=== PATIENT | female | born 2000 | race Caucasian/White ===

== ENCOUNTER → 2020-03-27 09:15 | Outpatient (BNVA) | payer BC, MEDICAID, SELFPAY | PROVIDERS: Visit Provider Nurse Practitioner Women's Health | DX: Z34.01 Encounter for supervision of normal first pregnancy, first trimester (principal) | CPT/HCPCS: 81000 ==

== ENCOUNTER → 2020-04-09 10:27 | Outpatient (BNVA) | payer BC, MEDICAID, SELFPAY | PROVIDERS: Visit Provider Obstetrics & Gynecology | DX: Z34.01 Encounter for supervision of normal first pregnancy, first trimester (principal) | CPT/HCPCS: 80307; 81000; 85027; 86592; 86762; 86803; 86850; 86900; 87086; 87340 ==

== ENCOUNTER → 2020-04-23 09:52 | Outpatient (BNVA) | payer BC, MEDICAID, SELFPAY | PROVIDERS: Visit Provider Obstetrics & Gynecology | DX: Z34.01 Encounter for supervision of normal first pregnancy, first trimester (principal) | CPT/HCPCS: 81000 ==

== ENCOUNTER → 2020-05-18 14:08 | Outpatient (BNVA) | payer BC, MEDICAID, SELFPAY | PROVIDERS: Visit Provider Obstetrics & Gynecology | DX: Z34.01 Encounter for supervision of normal first pregnancy, first trimester (principal) | CPT/HCPCS: 81000; 87491; 87591 ==

== ENCOUNTER → 2020-06-20 08:09 | Outpatient (BNVA) | payer BC, MEDICAID, SELFPAY | PROVIDERS: Visit Provider Obstetrics & Gynecology | DX: Z34.01 Encounter for supervision of normal first pregnancy, first trimester (principal) | CPT/HCPCS: 81000 ==

== ENCOUNTER → 2020-07-18 11:30 | Outpatient (BNVA) | payer BC, MEDICAID, SELFPAY | PROVIDERS: Visit Provider Nurse Practitioner Women's Health | DX: Z34.02 Encounter for supervision of normal first pregnancy, second trimester (principal) | CPT/HCPCS: 81000 ==

== ENCOUNTER 2020-08-11 00:18 | Outpatient (CLI) | payer BC, MEDICAID, SELFPAY ==
[2020-08-11 00:32] VITALS: BP 137/86; PULSE 96
[2020-08-11 01:35] LABS: Add Urine Microscopic? NO; Charge for UA Resulting for Rev
[2020-08-11 01:38] LABS: Bilirubin Urine Neg (Negative); Blood Urine Neg (Negative); Glucose Urine UA Norm (Normal); Ketones Urine Negative (Negative); Leukocyte Esterase Urine Negative (Negative); Nitrate Urine Negative (Negative); Protein Urine Neg (Negative); Specific Gravity, Urine 1.025 (1.005-1.030); Urine Appearance Clear (CLEAR); Urine Color Yellow (Yellow); Urobilinogen Urine Norm (Negative); pH Urine 5 (5-7)
[2020-08-11] MEDS: lactated ringers 1,000 ML 999 ML IV ×2 (01:41→02:46)
[2020-08-11] MEDS: hyDROXYzine 25 mg Capsule 50 MG PO (03:39)
[2020-08-11 03:57] VITALS: BP 127/70; PULSE 82
== END 2020-08-11 04:00 | disposition home or self-care (01) ==
LOC: OPOB 00:19 → OBGYN 00:20
PROVIDERS: Visit Provider Obstetrics & Gynecology
DX: O26.899 Other specified pregnancy related conditions, unspecified trimester (principal); Z3A.00 Weeks of gestation of pregnancy not specified; R10.9 Unspecified abdominal pain
CPT/HCPCS: 81003; 96360; 96361; 99211

== ENCOUNTER → 2020-08-17 07:49 | Outpatient (BNVA) | payer BC, MEDICAID, SELFPAY | PROVIDERS: Visit Provider Obstetrics & Gynecology | DX: Z34.02 Encounter for supervision of normal first pregnancy, second trimester (principal) | CPT/HCPCS: 81000; 82950; 85025 ==

== ENCOUNTER → 2020-08-27 08:34 | Outpatient (BNVA) | payer BC, MEDICAID, SELFPAY | PROVIDERS: Visit Provider Obstetrics & Gynecology | DX: Z34.02 Encounter for supervision of normal first pregnancy, second trimester (principal) | CPT/HCPCS: 81000 ==

== ENCOUNTER 2020-09-13 09:45 | Outpatient (CLI) | payer BC, MEDICAID, SELFPAY ==
[2020-09-13 10:00] VITALS: BMI 34.0
[2020-09-13 10:09] VITALS: BP 130/71; PULSE 103; RESP 17; TEMP 36.7
[2020-09-13 10:29] VITALS: BP 122/81; PULSE 102
[2020-09-13 10:35] LABS: Add Urine Microscopic? NO; Charge for UA Resulting for Rev
[2020-09-13 10:41] LABS: Basophils % 0.2 %; Eosinophils # 0.2 10^3/uL (0.0-0.8); Eosinophils % 1.5 %; Lymphocytes # 2.2 10^3/uL (1.5-6.5); Lymphocytes % 18.5 %; Mean Corpuscular HGB Conc 33.3 g/dL (30.0-36.0); Mean Corpuscular Hemoglobin 30.6 pg (28.0-34.0); Mean Corpuscular Volume 91.9 fL (81-99); Mean Platelet Volume 9.5 fL (7.4-10.4); Monocytes # 0.8 10^3/uL (0.2-0.9); Monocytes % 6.6 %; Neutrophils # 8.61 10^3/uL (1.8-8.0); Neutrophils % 72.5 %; Nucleated Red Blood Cells % 0 %; Platelet Count 248 10^3/cmm (130-400); Red Blood Count 3.59 10^6/uL (4.1-5.3); Red Cell Distribution Width 12.2 % (12.1-15.1); White Blood Count 11.9 10^3/uL (4.5-13.0)
[2020-09-13 10:49] VITALS: BP 123/78; PULSE 99
[2020-09-13 10:50] LABS: Bilirubin Urine Neg (Negative); Blood Urine Neg (Negative); Glucose Urine UA Norm (Normal); Ketones Urine Negative (Negative); Leukocyte Esterase Urine Negative (Negative); Nitrate Urine Negative (Negative); Protein Urine Neg (Negative); Specific Gravity, Urine 1.015 (1.005-1.030); Urine Appearance Clear (CLEAR); Urine Color Yellow (Yellow); Urobilinogen Urine Norm (Negative); pH Urine 6 (5-7)
[2020-09-13 11:01] LABS: Alanine Aminotransferase 6 U/L (0-33); Albumin Level 3.5 g/dL (3.5-5.2); Alkaline Phosphatase 96 IU/L (35-105); Anion Gap 14.9 (5-19); Aspartate Amino Transferase 9 U/L (0-32); Blood Urea Nitrogen 6 mg/dL (6-20); Calcium 8.6 mg/dL (8.5-10.5); Carbon Dioxide 22 mmol/L (22-29); Chloride 103 mmol/L (98-107); Globulin 2.9 g/dL (1.3-4.6); Glomerular Filtration Rate 203.5 mL/min (90-130); Glucose 89 mg/dL (65-115); Osmolality Calculated 279 mOsm/kg (285-295); Potassium 3.9 mmol/L (3.5-5.1); Sodium 136 mmol/L (136-145); Total Bilirubin 0.6 mg/dL (0.15-1.2); Total Protein 6.4 g/dL (6.6-8.7); Uric Acid 3.8 mg/dL (2.4-5.7)
[2020-09-13 11:09] VITALS: BP 125/68; PULSE 90
[2020-09-13 11:19] LABS: Urine Creatinine 172 mg/dL (28-217); Urine Protein Random 17 mg/dL
[2020-09-13 11:29] VITALS: BP 116/69; PULSE 90
== END 2020-09-13 11:50 | disposition home or self-care (01) ==
LOC: OPOB 09:53 → OBGYN 09:54
PROVIDERS: Obstetrics & Gynecology; Visit Provider Obstetrics & Gynecology
DX: O16.9 Unspecified maternal hypertension, unspecified trimester (principal); Z3A.00 Weeks of gestation of pregnancy not specified
CPT/HCPCS: 36415; 59025; 80053; 81000; 81003; 82570; 84156; 84550; 85025; 99211

== ENCOUNTER → 2020-09-25 10:00 | Outpatient (BNVA) | payer BC, MEDICAID, SELFPAY | PROVIDERS: Visit Provider Nurse Practitioner Women's Health | DX: Z34.80 Encounter for supervision of other normal pregnancy, unspecified trimester (principal) | CPT/HCPCS: 81000 ==

== ENCOUNTER 2020-10-05 14:18 | Outpatient (CLI) | payer BC, MEDICAID, SELFPAY ==
[2020-10-05] VITALS (34 sets, daily range): BP systolic 112–138; BP diastolic 63–79; PULSE 93–120; RESP 18; O2SAT 96–99; BMI 34.7
[2020-10-05] MEDS: HYDROcodone-acetaminophen 5-325 mg Tablet 1 TAB PO (15:32)
[2020-10-05] MEDS: lactated ringers 500 ML 999 ML IV (15:50)
--- NOTE | 2020-10-05 16:05 | PM.ACPR ---
Procedure/Consent Procedure Narrative: NONSTRESS TEST: Place of test: [facility] [place] Indication: 19-year-old 1 para 0 with swelling headache and contractions at 35 weeks and 6 days Date and time of test: 10/05/2020, 3:30 PM Baseline: 155 Variability: Moderate variability Accelerations: Accelerations present Decelerations: No decelerations Tocometry: Contractions every 2 to 4 minutes INTERPRETATION: NST reactive-continuous monitoring given contractions, continue kick counts
[2020-10-05 16:16] LABS: Urine Creatinine 68 mg/dL (28-217); Urine Protein Random 7 mg/dL
== END 2020-10-05 17:30 | disposition home or self-care (01) ==
LOC: OPOB 14:25 → OBGYN 14:27
PROVIDERS: Visit Provider Obstetrics & Gynecology
DX: O26.893 Other specified pregnancy related conditions, third trimester (principal); Z3A.35 35 weeks gestation of pregnancy; R42 Dizziness and giddiness; R20.0 Anesthesia of skin
CPT/HCPCS: 36415; 59025; 82570; 84156; 96360; 99211

== ENCOUNTER 2020-10-05 17:31 | Emergency (ER) | payer BC, MEDICAID, SELFPAY ==
[2020-10-05 17:41] VITALS: BP 129/85; PULSE 101; RESP 17; TEMP 36.7; O2SAT 97
[2020-10-05 18:21] LABS: Basophils % 0.2 %; Eosinophils # 0.2 10^3/uL (0.0-0.8); Eosinophils % 1.8 %; Hematocrit 33.3 % (37.0-47.0); Hemoglobin 10.9 g/dL (11.5-15.3); Lymphocytes # 2.3 10^3/uL (1.5-6.5); Mean Corpuscular HGB Conc 32.7 g/dL (30.0-36.0); Mean Corpuscular Hemoglobin 29.9 pg (28.0-34.0); Mean Corpuscular Volume 91.2 fl (81-99); Monocytes % 8.4 %; Neutrophils # 8.61 10^3/uL (1.8-8.0); Nucleated Red Blood Cells % 0 %; Platelet Count 245 10^3/cmm (130-400); Red Blood Count 3.65 10^6/uL (4.1-5.3); Red Cell Distribution Width 12.6 % (12.1-15.1); White Blood Count 12.3 10^3/uL (4.5-13.0)
[2020-10-05 18:37] LABS: Alanine Aminotransferase 6 U/L (0-33); Albumin Level 3.4 g/dL (3.5-5.2); Alkaline Phosphatase 108 IU/L (35-105); Anion Gap 13.8 (5-19); Aspartate Amino Transferase 10 U/L (0-32); Blood Urea Nitrogen 6 mg/dL (6-20); Calcium 8.6 mg/dL (8.5-10.5); Carbon Dioxide 22 mmol/L (22-29); Chloride 103 mmol/L (98-107); Globulin 2.7 g/dL (1.3-4.6); Glomerular Filtration Rate 283.6 mL/min (90-130); Glucose 74 mg/dL (65-115); Osmolality Calculated 276 mOsm/kg (285-295); Potassium 3.8 mmol/L (3.5-5.1); Sodium 135 mmol/L (136-145); Total Bilirubin 0.6 mg/dL (0.15-1.2); Total Protein 6.1 g/dL (6.6-8.7)
[2020-10-05 19:20] LABS: Add Urine Microscopic? NO; Bilirubin Urine Neg (Negative); Blood Urine Neg (Negative); Charge for UA Resulting for Rev; Glucose Urine UA Norm (Normal); Ketones Urine Negative (Negative); Leukocyte Esterase Urine Negative (Negative); Nitrate Urine Negative (Negative); Protein Urine Neg (Negative); Urine Appearance Clear (CLEAR); Urine Color Straw (Yellow); Urobilinogen Urine Norm (Negative); pH Urine 5 (5-7)
[2020-10-05] MEDS: acetaminophen 325 mg Tablet 650 MG PO (19:26)
[2020-10-05] MEDS: dexamethasone 10 mg/mL INJ IM (19:27)
[2020-10-05 19:48] VITALS: BP 128/85; PULSE 92; RESP 18; O2SAT 97
--- NOTE | 2020-10-05 19:50 | ED_ITS ---
HPI - Headache General: Chief Complaint: Headache Stated Complaint: Severe Headache/36 wks preg. Sent from OB Time Seen by Provider: 10/05/20 18:44 History of Present Illness: HPI Narrative: Patient is a 19-year-old female G1, P0 at 36 weeks. No complications with this and follows with a local media relations director. She is here with complaints of headache. She was first seen in the OB department where she had a monitoring that showed some mild con tractions but no active labor. She had basic labs drawn and was brought down here for further evaluation [place] of her headache. At the time she was given hydrocodone which helped her headache. However it returned and she was sent back down here. She has been normotensive. Denies any visual changes right upper quadrant pain shortness of breath or chest pain. No altered mental status. No increase in lower leg edema. Denies fevers chills chest pain nausea vomiting diarrhea altered mental status or syncope Pain she states is bilateral behind her eyes and in frontalis muscle. Was not sudden onset or is not the worst headache of her life. She does not have any numbness or tingling in her face hands or feet Review of Systems General: Reports: 10 or more systems reviewed and unremarkable except in HPI and below PFSH ED PFSH: Medical History No pertinent past medical history neghx: htn,dm,thyroid,dvt/pe,herpes ---denies partner with herpes PCP: None Surgical History History of tonsillectomy and adenoidectomy (~2007) Family History Grandmother Diabetes Maternal Denies family history of Colon cancer Ovarian cancer Heart disease Hypercholesteremia Breast cancer Hypertension Uterine cancer Thyroid disease Stroke Physical Exam Const: COMMON NORMALS: no acute distress, average body habitus, patient oriented x3, no limitations and alert EXAM LIMITATIONS: no altered mental status, no behavioral limitations and no physical limitations GENERAL APPEARA NCE: cooperative, comfortable, well kempt and well developed ORIENTATION/CONSCIOUSNESS: Yes oriented to person, Yes oriented to place and Yes oriented to time HENMT: COMMON NORMALS: normocephalic and atraumatic HEAD & SCALP: normocephalic and atraumatic OTHER: Mild tenderness to palpation over her frontal sinuses bilaterally Eye: COMMON NORMALS: Equal, round and reactive pupils present, EOMs intact bilaterally, conjunctivae normal and no scleral icterus CONJUNCTIVA: Yes conjunctivae normal PUPIL: Yes Equal, round and reactive pupils present Neck/C-Spine: COMMON NORMALS: full ROM and no meningeal signs Resp: COMMON NORMALS: normal respiratory effort and No retractions Cardio: COMMON NORMALS: regular rate, regular rhythm and No murmurs present (Cardio) RATE: regular rate RHYTHM: regular rhythm GI: COMMON NORMALS: Normal to inspection, nondistended, normoactive bowel sounds present INSPECTION: Yes normal to inspection and Yes gravid abdomen Extremity: COMMON NORMALS: normal to inspection and full ROM Neuro: COMMON NORMALS: patient oriented x3, CN's II-XII intact bilaterally, moves all extremities, no focal motor deficits and no sensory deficits noted SENSORIUM/ORIENTATION: Yes alert, Yes oriented to person, Yes oriented to place and Yes oriented to time MENINGEAL SIGNS: Yes no meningeal signs and Yes nuccal rigidity CRANIAL NERVES: Yes CN normal except as noted Psych: COMMON NORMALS: mental status grossly normal and Normal thought process present APPEARANCE: Yes well kempt THOUGHT PROCESS: Normal thought process present Skin: COMMON NORMALS: no rashes or lesions noted and no wounds GENERAL SKIN EXAM: no rashes or lesions noted Course ED course: Patient got some mild relief from the Tylenol. Hopefully the steroids will help as well. Normal heart tones labs did not show any indication of preeclampsia. Her protein creatinine ratio was 0.1 well below cutoff. We will discharge her and have her follow-up with her primary care provider Vital Signs: Vital signs: Vital Signs Temperature 98.1 F 10/05/20 17:41 Pulse Rate 92 10/05/20 19:48 Respiratory Rate 18 10/05/20 19:48 Blood Pressure 128/85 10/05/20 19:48 Pulse Oximetry 97 10/05/20 19:48 MDM - Headache Lab Data: Labs: Lab Results 10/05/20 10/05/20 10/05/20 Range/Units 15:40 15:40 18:51 WBC 12.3 (4.5-13.0) 10^3/ uL RBC 3.65 L (4.1-5.3) 10^6/u L Hgb 10.9 L (11.5-15.3) g/dL Hct 33.3 L (37.0-47.0) % MCV 91.2 (81-99) fl MCH 29.9 (28.0-34.0) pg MCHC 32.7 (30.0-36.0) g/dL RDW 12.6 (12.1-15.1) % Plt Count 245 (130-400) 10^3/c mm MPV 10.0 (7.4-10.4) fL Neut % (Auto) 70.0 % Lymph % (Auto) 19.0 % [place] % (Auto) 8.4 % Eos % (Auto) 1.8 % Baso % (Auto) 0.2 % Neut # (Auto) 8.61 H (1.8-8.0) 10^3/u L Lymph # (Auto) 2.3 (1.5-6.5) 10^3/u L [place] # (Auto) 1.0 H (0.2-0.9) 10^3/u L Eos # (Auto) 0.2 (0.0-0.8) 10^3/u L Baso # (Auto) 0.0 (0.0-0.1) 10^3/u L Nucleated RBC % (a uto) 0 % Nucleated RBCs # 0.0 /100WBC Sodium 135 L (136-145) mmol/L Potassium 3.8 (3.5-5.1) mmol/L Chloride 103 (98-107) mmol/L Carbon Dioxide 22 (22-29) mmol/L Anion Gap 13.8 (5-19) BUN 6 (6-20) mg/dL Creatinine 0.3 L (0.5-0.9) mg/dL GFR Calculation 283.6 H (90-130) mL/min Glucose 74 (65-115) mg/dL Calculated Osmolal ity 276 L (285-295) mOsm/k g Uric Acid (2.4-5.7) mg/dL Calcium 8.6 (8.5-10.5) mg/dL Total Bilirubin 0.6 (0.15-1.2) mg/dL AST 10 (0-32) U/L ALT 6 (0-33) U/L Alkaline Phosphata se 108 H (35-105) IU/L Total Protein 6.1 L (6.6-8.7) g/dL Albumin 3.4 L (3.5-5.2) g/dL Globulin 2.7 (1.3-4.6) g/dL Urine Color Straw (Yellow) Urine Appearance Clear (CLEAR) Urine pH 5 (5-7) Ur Specific Gravit y 1.010 (1.005-1.030) Urine Protein Neg (Negative) Urine Glucose (UA) Norm (Normal) Urine Ketones Negative (Negative) Urine Blood Neg (Negative) Urine Nitrate Negative (Negative) Urine Bilirubin Neg (Negative) Urine Urobilinogen Norm (Negative) mg/dL Ur Leukocyte Yari ase Negative (Negative) 10/05/20 Range/Units 19:30 WBC (4.5-13.0) 10^3/ uL RBC (4.1-5.3) 10^6/u L Hgb (11.5-15.3) g/dL Hct (37.0-47.0) % MCV (81-99) fl MCH (28.0-34.0) pg MCHC (30.0-36.0) g/dL RDW (12.1-15.1) % Plt Count (130-400) 10^3/c mm MPV (7.4-10.4) fL Neut % (Auto) % Lymph % (Auto) % [place] % (Auto) % Eos % (Auto) % Baso % (Auto) % Neut # (Auto) (1.8-8.0) 10^3/u L Lymph # (Auto) (1.5-6.5) 10^3/u L [place] # (Auto) (0.2-0.9) 10^3/u L Eos # (Auto) (0.0-0.8) 10^3/u L Baso # (Auto) (0.0-0.1) 10^3/u L Nucleated RBC % (a uto) % Nucleated RBCs # /100WBC Sodium (136-145) mmol/L Potassium (3.5-5.1) mmol/L Chloride (98-107) mmol/L Carbon Dioxide (22-29) mmol/L Anion Gap (5-19) BUN (6-20) mg/dL Creatinine (0.5-0.9) mg/dL GFR Calculation (90-130) mL/min Glucose (65-115) mg/dL Calculated Osmolal ity (285-295) mOsm/k g Uric Acid 3.3 (2.4-5.7) mg/dL Calcium (8.5-10.5) mg/dL Total Bilirubin (0.15-1.2) mg/dL AST (0-32) U/L ALT (0-33) U/L Alkaline Phosphata se (35-105) IU/L Total Protein (6.6-8.7) g/dL Albumin (3.5-5.2) g/dL Globulin (1.3-4.6) g/dL Urine Color (Yellow) Urine Appearance (CLEAR) Urine pH (5-7) Ur Specific Gravit y (1.005-1.030) Urine Protein (Negative) Urine Glucose (UA) (Normal) Urine Ketones (Negative) Urine Blood (Negative) Urine Nitrate (Negative) Urine Bilirubin (Negative) Urine Urobilinogen (Negative) mg/dL Ur Leukocyte Yari ase (Negative) Discharge Plan Discharge Patient Disposition: Home Clinical Impression: Headache Qualifiers: Headache type: tension-type Headache chronicity pattern: acute headache Intractability: not intractable Qualified Code(s): G44.209 - Tension-type headache, unspecified, not intractable Condition: Stable Prescriptions: No Action prenat.vits,tavo,vyx-emem-cpdje Tablet 1 tab PO DAILY RF: 0 polyethylene glycol 3350 [Miralax] 17 gram/dose powder 17 g PO BID RF: 0 ferrous sulfate 325 mg (65 mg iron) tablet,delayed release (DR/EC) 325 mg PO BID RF: 0 Discharge Orders: Discharge ED (Routine); Ordered 10/05/20 Ordered By: Alex Nichole Referrals: Sneha Guzman MD [Primary Care Provider] - Discharge Activity: Resume usual activity Patient Instructions: Acute Headache (ED) Activity Restrictions/Additional Instructions: You can take Tylenol 650 mg 4 times a day. You should have less you need for that over the next day as the steroids kick in. He can also use a heating pad alternating with a cool washcloth over the bridge of her nose and forehead. Follow-up with your media relations director at your next scheduled appointment. Return with any worsening symptoms severe pain in the right upper quadrant visual changes chest pain lack of movement bleeding contractions or any other new or worsening symptoms. Coding Level of Care Code ED Accounts Manager for Chg Fwd Exam Comprehensive
[2020-10-05 20:04] LABS: Uric Acid 3.3 mg/dL (2.4-5.7)
[2020-10-05 20:10] LABS: Urine Creatinine 57 mg/dL (28-217); Urine Protein Random 6 mg/dL
[2020-10-05 20:11] LABS: UPRO/UCREAT Ratio 0.11 mg/mg CR
[2020-10-05 20:15] LABS: Lactate Dehydrogenase 808 U/L (135-214)
[2020-10-05 20:17] VITALS: BP 119/76; PULSE 93; PULSE 99; RESP 18; O2SAT 90; O2SAT 98
== END 2020-10-05 20:20 | disposition home or self-care (01) ==
PROVIDERS: Emergency Medicine; Emergency Provider Family Medicine; PCP Obstetrics & Gynecology
DX: O26.893 Other specified pregnancy related conditions, third trimester (principal); G44.209 Tension-type headache, unspecified, not intractable; Z3A.36 36 weeks gestation of pregnancy
CPT/HCPCS: 80053; 81003; 82570; 83615; 84156; 84550; 85025; 96372; 99283; J1100

== ENCOUNTER → 2020-10-08 10:02 | Outpatient (BNVA) | payer BC, MEDICAID, SELFPAY | PROVIDERS: PCP Obstetrics & Gynecology; Visit Provider Obstetrics & Gynecology | DX: Z34.02 Encounter for supervision of normal first pregnancy, second trimester (principal) | CPT/HCPCS: 81000; 87081 ==

== ENCOUNTER 2020-10-14 15:30 | Outpatient (CLI) | payer BC, MEDICAID, SELFPAY ==
[2020-10-14] VITALS (33 sets, daily range): BP systolic 119–142; BP diastolic 67–93; PULSE 85–111; RESP 17–18; TEMP 36.5; O2SAT 96–99; BMI 33.5
[2020-10-14 16:43] LABS: Add Urine Microscopic? NO; Charge for UA Resulting for Rev
[2020-10-14 16:46] LABS: Basophils % 0.3 %; Eosinophils # 0.3 10^3/uL (0.0-0.8); Eosinophils % 2.6 %; Hematocrit 33.4 % (37.0-47.0); Lymphocytes # 2.6 10^3/uL (1.5-6.5); Mean Corpuscular HGB Conc 32.9 g/dL (30.0-36.0); Mean Corpuscular Hemoglobin 30.1 pg (28.0-34.0); Mean Corpuscular Volume 91.5 fl (81-99); Mean Platelet Volume 9.9 fL (7.4-10.4); Monocytes # 0.9 10^3/uL (0.2-0.9); Monocytes % 7.3 %; Neutrophils # 7.87 10^3/uL (1.8-8.0); Neutrophils % 66.9 %; Nucleated Red Blood Cells % 0 %; Platelet Count 252 10^3/cmm (130-400); Red Blood Count 3.65 10^6/uL (4.1-5.3); White Blood Count 11.8 10^3/uL (4.5-13.0)
[2020-10-14 16:57] LABS: Bilirubin Urine Neg (Negative); Blood Urine Neg (Negative); Glucose Urine UA Norm (Normal); Ketones Urine Negative (Negative); Leukocyte Esterase Urine Negative (Negative); Nitrate Urine Negative (Negative); Protein Urine Neg (Negative); Specific Gravity, Urine 1.015 (1.005-1.030); Urine Appearance Clear (CLEAR); Urine Color Straw (Yellow); Urobilinogen Urine Norm (Negative); pH Urine 6 (5-7)
[2020-10-14] MEDS: hyDROXYzine 25 mg Capsule 50 MG PO (17:12)
[2020-10-14 17:14] LABS: Urine Creatinine 55 mg/dL (28-217); Urine Protein Random 6 mg/dL
[2020-10-14 17:15] LABS: Alanine Aminotransferase 8 U/L (0-33); Albumin Level 3.5 g/dL (3.5-5.2); Alkaline Phosphatase 118 IU/L (35-105); Anion Gap 13.1 (5-19); Aspartate Amino Transferase 12 U/L (0-32); Blood Urea Nitrogen 8 mg/dL (6-20); Carbon Dioxide 22 mmol/L (22-29); Chloride 104 mmol/L (98-107); Globulin 2.9 g/dL (1.3-4.6); Glomerular Filtration Rate 203.5 mL/min (90-130); Glucose 77 mg/dL (65-115); Osmolality Calculated 277 mOsm/kg (285-295); Potassium 4.1 mmol/L (3.5-5.1); Sodium 135 mmol/L (136-145); Total Bilirubin 0.5 mg/dL (0.15-1.2); Total Protein 6.4 g/dL (6.6-8.7)
[2020-10-14 17:16] LABS: UPRO/UCREAT Ratio 0.11 mg/mg CR; Uric Acid 3.7 mg/dL (2.4-5.7)
[2020-10-14] MEDS: cyclobenzaprine 10 mg Tablet PO (17:33)
== END 2020-10-14 17:49 | disposition home or self-care (01) ==
LOC: OPOB 15:33 → OBGYN 15:34
PROVIDERS: PCP Obstetrics & Gynecology; Visit Provider Obstetrics & Gynecology
DX: O26.899 Other specified pregnancy related conditions, unspecified trimester (principal); Z3A.00 Weeks of gestation of pregnancy not specified; R51.9 Headache, unspecified
CPT/HCPCS: 36415; 59025; 80053; 81003; 82570; 84156; 84550; 85025; 99211

== ENCOUNTER → 2020-10-15 09:50 | Outpatient (BNVA) | payer BC, MEDICAID, SELFPAY | PROVIDERS: PCP Obstetrics & Gynecology; Visit Provider Obstetrics & Gynecology | DX: Z34.90 Encounter for supervision of normal pregnancy, unspecified, unspecified trimester (principal) | CPT/HCPCS: 81000 ==

== ENCOUNTER → 2020-10-25 09:41 | Outpatient (BNVA) | payer BC, MEDICAID, SELFPAY | PROVIDERS: PCP Obstetrics & Gynecology; Visit Provider Obstetrics & Gynecology | DX: Z34.02 Encounter for supervision of normal first pregnancy, second trimester (principal) | CPT/HCPCS: 81000; 87635 ==

== ENCOUNTER 2020-10-26 14:30 | Inpatient (IN) | payer BC, MEDICAID, SELFPAY ==
[2020-10-26] VITALS (26 sets, daily range): BP systolic 113–140; BP diastolic 58–85; PULSE 92–108; RESP 17–20; TEMP 36.6; BMI 35.6
--- NOTE | 2020-10-26 15:22 | PM.OPHPUD ---
Labor & Delivery H&P Update Date of Procedure: October 26, 2020 Date H&P Performed: 10/25/20 H&P update information: I have reviewed H&P completed within last 30 days, I have examined patient prior to procedure and No changes to prior documentation Admission Diagnosis: iup at 38 6/7, early labor
[2020-10-26] MEDS: oxytocin 30 UNIT/500 ML BAG IV (16:00)
[2020-10-26] MEDS: dextrose 5%-lactated ringers 1,000 ML 125 ML IV (16:00)
--- NOTE | 2020-10-26 17:00 | PC.NURSE ---
PT C/O PAIN 11/25, BUT DECLINES INTERVENTION
[2020-10-26 18:49] LABS: Basophils % 0.2 %; Eosinophils # 0.1 10^3/uL (0.0-0.8); Eosinophils % 0.5 %; Hematocrit 33.2 % (37.0-47.0); Hemoglobin 10.7 g/dL (11.5-15.3); Lymphocytes # 1.3 10^3/uL (1.5-6.5); Lymphocytes % 10.5 %; Mean Corpuscular HGB Conc 32.2 g/dL (30.0-36.0); Mean Corpuscular Hemoglobin 29.5 pg (28.0-34.0); Mean Corpuscular Volume 91.5 fl (81-99); Mean Platelet Volume 10.2 fL (7.4-10.4); Monocytes # 0.7 10^3/uL (0.2-0.9); Neutrophils # 10.04 10^3/uL (1.8-8.0); Neutrophils % 82.5 %; Nucleated Red Blood Cells % 0 %; Platelet Count 274 10^3/cmm (130-400); Red Blood Count 3.63 10^6/uL (4.1-5.3); Red Cell Distribution Width 12.8 % (12.1-15.1); White Blood Count 12.2 10^3/uL (4.5-13.0)
--- NOTE | 2020-10-26 19:15 | PC.NURSE ---
Nia Cosby RN titrated oxytocin on Centricity strip. Unable to chart past titration on infusion record.
--- NOTE | 2020-10-26 19:40 | PC.NURSE ---
This nurse at bedside at this time. This nurse educated pt on plan of care, stopping oxytocin, starting cytotec, reasoning behind plan of care. Pt and SO verbalized understanding. Questions answered.
[2020-10-26] MEDS: miSOPROStol 100 mcg tablet 25 MCG VAGINAL (22:13)
[2020-10-27] VITALS (165 sets, daily range): BP systolic 103–179; BP diastolic 55–86; PULSE 74–110; RESP 15–20; TEMP 36.4–37.5; O2SAT 96–100
[2020-10-27] MEDS: hyDROXYzine 25 mg Capsule 50 MG PO (01:51)
[2020-10-27] MEDS: miSOPROStol 100 mcg tablet 25 MCG VAGINAL ×2 (02:16→07:19)
[2020-10-27] MEDS: fentaNYL 50 mcg/mL INJ 2mL IVP ×2 (04:09→05:45)
[2020-10-27] MEDS: lactated ringers 1,000 ML 999 ML IV (05:15)
--- NOTE | 2020-10-27 05:50 | ANES.PREANE2 ---
Pre-Anesthetic Assessment Pre-Anesthetic Assessment: Height/Weight: Height 1.57 m Weight 88.451 kg Temp Pulse Resp BP Pulse Ox 99.1 F 105 H 20 H 132/71 97 10/27/20 04:50 10/27/20 06:11 10/27/20 05:45 10/27/20 06:11 10/27/20 06:11 Preop Diagnosis: IUP/ Proposed Procedure: labor epidural Was Beta Peyton taken within 24 hours: N/A Was Clonidine taken within 24 hours: N/A Social: Social History: No alcohol and No tobacco Exam: Pre-Anes Outpt Exam: alert, oriented x 3, clear to auscultation bilaterally and regular rate & rhythm Airway: Submandibular: WNL Cervical ROM: WNL MP: 2 History/ROS: No significant history except as noted Pulmonary: Pulmonary: None reported CV/HEM: CV/HEM: HTN (PID) : : None reported Hepatic: Hepatic: None reported GI: GI: None reported Metabolic: Metabolic: None reported Musc/skel: Musc/skel: None reported Neuropsych: Neuropsych: None reported Anesthetic Plan: ASA status: 2 Anesthesia: Anesthesia Evaluation Risk of > 500 ml blood loss (7ml/kg in children): No Meds/Allergies Current Medications: Current Medications Generic Name Dose Route Start Last Admin Trade Name Freq PRN Reason Stop Dose Admin Fentanyl 25 - 100 mcg 10/26/20 15:27 10/27/20 05:45 Fentanyl 50 Mcg/ Ml Inj 2ml IVP 50 mcg Q1H PRN Administration SEVERE PAIN Hydroxyzine Pamoat e 50 mg 10/26/20 15:27 10/27/20 01:51 Hydroxyzine 25 M g Capsule PO 50 mg QID PRN Administration sleep, agitation or itching Dextrose/Lactated Ringer's 1,000 mls @ 125 m ls/hr 10/26/20 15:30 10/27/20 05:15 Dextrose 5%-Lact ated Ringers IV Infused .Q8H ROBERT Infusion Ropivacaine 200 mg in 100 mls @ 13 mls/hr 10/27/20 05:00 10/27/20 05:58 Naropin Premix EPIDURAL 13 mls/hr .Q7H42M ROBERT Administration Lactated Ringer's 1,000 mls @ 999 m ls/hr 10/27/20 04:46 10/27/20 05:15 Lactated Ringers IV 999 mls/hr .Q1H1M PRN Administration See label comment s PFSH Anesthesia PFSH: Medical History No pertinent past medical history neghx: htn,dm,thyroid,dvt/pe,herpes ---denies partner with herpes PCP: None Surgical History History of tonsillectomy and adenoidectomy (~2007) Family History Grandmother Diabetes Maternal Denies family history of Colon cancer Ovarian cancer Heart disease Hypercholesteremia Breast cancer Hypertension Uterine cancer Thyroid disease Stroke Female Reproductive History: : 1 Data Anesthesia CBC & Chem 7: 10/26/20 15:55 Other Labs: Laboratory Results - last 48 hr 10/26/20 15:55 WBC 12.2 RBC 3.63 L Hgb 10.7 L Hct 33.2 L MCV 91.5 MCH 29.5 MCHC 32.2 RDW 12.8 Plt Count 274 MPV 10.2 Neut % (Auto) 82.5 Lymph % (Auto) 10.5 [place] % (Auto) 6.0 Eos % (Auto) 0.5 Baso % (Auto) 0.2 Neut # (Auto) 10.04 H Lymph # (Auto) 1.3 L [place] # (Auto) 0.7 Eos # (Auto) 0.1 Baso # (Auto) 0.0 Nucleated RBC % (auto) 0 Nucleated RBCs # 0.0 Cardiac Studies: No Data to Display
--- NOTE | 2020-10-27 06:19 | ANES.PROC ---
Anesthesia Procedures Procedure/Date: 10/27/20 Epidural: Time Out Performed: Yes Consents Signed: Procedure Consent Consent: requested by attending/covering physician Lumbar Level: L3-L4 Epidural position: sitting Epidural procedure: sterile prep of area, 1% lidocaine to numb the area, 18 g needle, negative for paresthesia passed, neg for paresthesia, test dose given, 1.5% xylocaine 1:200k epi (5ml), placed PCEA, no systemic response, sterile dressing applied, L.U.D. no apparent complications and 0.2% Ropiavacaine @ mls/hr (13)
--- NOTE | 2020-10-27 06:24 | PM.PN ---
Vitals/I&O/Wt Last Vital Signs Temp 97.5 F L 10/27/20 06:17 Pulse 101 H 10/27/20 06:21 Resp 15 10/27/20 06:22 BP 119/62 10/27/20 06:20 Pulse Ox 99 10/27/20 06:21 10/26/20 10/26/20 10/27/20 14:59 22:59 06:59 Intake Total 477.316 / 011.525 6986.667 / 1818.983 Balance 477.316 / 610.188 3426.667 / 1818.983 Weight last 48 hrs Weight 195 lb Physical Exam Narrative: EXAM NARRATIVE: The patient has received a couple of doses of cytotec. She is presently getting an epidural for pain control. status is very reassuring with a category 1 tracing Const: COMMON NORMALS: no acute distress, average body habitus, patient oriented x3, no limitations, healthy appearing, alert and well nourished GENERAL APPEARANCE: cooperative, comfortable, well kempt and well developed ORIENTATION/CONSCIOUSNESS: Yes awake, Yes oriented to person, Yes oriented to place and Yes oriented to time Resp: COMMON NORMALS: normal respiratory effort EFFORT & INSPECTION: Yes able to speak in complete sentences GI: COMMON NORMALS: Soft to palpation and non-tender PALPATION: Yes Soft to palpation Extremity: COMMON NORMALS: no clubbing, cyanosis or edema and no calf tenderness Neuro: COMMON NORMALS: patient oriented x3 SENSORIUM/ORIENTATION: Yes alert, Yes oriented to person, Yes oriented to place and Yes oriented to time Psych: APPEARANCE: Yes well kempt Urinary Catheter Management^: Carter: Cath Placed During This Visit: yes Reason for Continuing Indwelling Catheter: Other Urinary Catheter Date of Insertion: 10/27/20 Urinary Catheter Time of Insertion: 06:20 Data : 10/26/20 15:55 Attestations Medical Necessity Statement*: The patient will be here for two midnights Coding Level of Care Code Acute Warehouse Distribution Manager for Yajaira Stanley
[2020-10-27] MEDS: dextrose 5%-lactated ringers 1,000 ML 125 ML IV ×2 (07:31→15:47)
[2020-10-27] MEDS: oxytocin 30 UNIT/500 ML BAG IV (13:01)
[2020-10-27] MEDS: ondansetron 2 mg/ML SDV 2 mL 4 MG IVP (16:16)
--- NOTE | 2020-10-27 19:19 | P.PCNOB_ITS ---
Delivery Note: Date of delivery: October 27, 2020 Pre-delivery diagnoses: iup at 39 weeks, labile blood pressures Post-delivery diagnoses: same Procedure: Op report anesthesia: Epidural Delivering Physician: Thomas Estimated blood loss (mL): 75 Findings: term male in the cephalic presentation Pre-Delivery Course: The patient was admitted for induction at term. She had some labile blood pressures on admission. the patient also appears to have undiagnosed anxiety. She had cytotec times three. She received an epidural for pain management. She had SROM and then had complete cervical dilation. Delivery: The patient had complete cervical dilation and began to push. The head delivered in the SHERRELL position over an intact perineum under epidural anesthesia. There was a single nuchal cord which was reduced at the perineum. The nose and mouth were bulb suctioned. The shoulders and body delivered atraumatically. The baby was placed onto the mother's abdomen. The cord was clamped and cut. The placenta delivered spontaneously. It was inspected and found to be intact. Inspection of the perineum revealed no repair was required. Estimated blood loss 75 mL. Apgars on baby were 8 at 1 minute and 9 at 5 minutes. Weight of baby is 7 pounds 2 ounces. Mother and baby were stable post delivery. Coding Level of Care Code Acute Housekeeper Cleaning Cooking for Yajaira Stanley
[2020-10-27] MEDS: ibuprofen 800 mg tablet PO (20:17)
[2020-10-27] MEDS: acetaminophen 325 mg Tablet 650 MG PO (20:17)
[2020-10-27] MEDS: benzocaine-menthol 78 gm Canister 1 SPRAY TOPICAL (22:59)
[2020-10-27] MEDS: lanolin oint 7 gm 1 APPLIC TOPICAL (22:59)
--- NOTE | 2020-10-28 00:10 | PC.NURSE ---
PATIENT UP IN ROOM AND DOING WELL. MOVING PT AND BABY TO OB7 AT THIS TIME.
[2020-10-28 00:45] VITALS: BP 109/72; PULSE 74; RESP 18; TEMP 37.1; O2SAT 99
[2020-10-28 02:35] VITALS: BP 108/70; PULSE 80; RESP 18; TEMP 36.6; O2SAT 99
[2020-10-28 05:29] VITALS: BP 112/60; PULSE 75; RESP 18; O2SAT 99
[2020-10-28] MEDS: prenatal vitamin Capsule 1 CAP PO (08:45)
[2020-10-28] MEDS: ibuprofen 800 mg tablet PO ×2 (08:45→16:39)
[2020-10-28] MEDS: docusate sodium 100 mg Capsule PO (08:45)
[2020-10-28 10:07] VITALS: BP 124/72; PULSE 80; RESP 16; TEMP 36.6; O2SAT 99
[2020-10-28 12:25] LABS: Hematocrit 31.2 % (37.0-47.0); Mean Corpuscular HGB Conc 32.1 g/dL (30.0-36.0); Mean Corpuscular Hemoglobin 29.2 pg (28.0-34.0); Mean Corpuscular Volume 91.2 fl (81-99); Mean Platelet Volume 9.8 fL (7.4-10.4); Platelet Count 227 10^3/cmm (130-400); Red Blood Count 3.42 10^6/uL (4.1-5.3); White Blood Count 10.4 10^3/uL (4.5-13.0)
--- NOTE | 2020-10-28 12:55 | PM.DCS ---
Discharge Providers Date of Admission: 10/26/20 14:30 Date of Discharge: October 28, 2020 Attending Provider at Admission: Sneha Guzman MD Attending Provider at Discharge: Sneha Guzman MD Diagnoses at Discharge Discharge Diagnosis (1) state: Status: Acute Reason for Visit Reason for Visit: CONTRACTIONS Hospital Course Hospital Course The patient was admitted for induction due to labile blood pressures at term. She had spontaneous delivery of a term . She did well and was ready for discharge on day #1 Physical Exam Narrative: EXAM NARRATIVE: The patient is doing well this morning. She is requesting discahrge. No concerns today. Const: COMMON NORMALS: no acute distress, average body habitus, patient oriented x3, no limitations, healthy appearing and alert GENERAL APPEARANCE: cooperative, comfortable, well kempt and well developed ORIENTATION/CONSCIOUSNESS: Yes awake, Yes oriented to person, Yes oriented to place and Yes oriented to time Resp: COMMON NORMALS: normal respiratory effort EFFORT & INSPECTION: Yes able to speak in complete sentences GI: COMMON NORMALS: Soft to palpation and non-tender PALPATION: Yes Soft to palpation Extremity: COMMON NORMALS: no clubbing, cyanosis or edema and no calf tenderness Neuro: COMMON NORMALS: patient oriented x3 SENSORIUM/ORIENTATION: Yes alert, Yes oriented to person, Yes oriented to place and Yes oriented to time Psych: COMMON NORMALS: mental status grossly normal, Normal thought process present, cooperative, normal affect, speech normal and activity/motor behavior normal APPEARANCE: Yes grossly normal and Yes well kempt ATTITUDE: Yes calm and Yes engaged ACTIVITY/MOTOR BEHAVIOR: Yes appropriate eye contact SPEECH: Yes normal speech THOUGHT PROCESS: Normal thought process present Urinary Catheter Management^: Carter: Cath Placed During This Visit: yes, but has since been removed by the nurse Reason for Continuing Indwelling Catheter: Accurate Measurement of Urinary Output in Critically Ill Patients Urinary Catheter Date of Insertion: 10/27/20 Urinary Catheter Time of Insertion: 06:20 Date Urinary Catheter Removed: 10/27/20 Time Urinary Catheter Discontinued: 18:40 Discharge Data Data Completed and Pending: Labs from last 24 hours 10/28/20 12:12 WBC 10.4 RBC 3.42 L Hgb 10.0 L Hct 31.2 L MCV 91.2 MCH 29.2 MCHC 32.1 RDW 13.0 Plt Count 227 MPV 9.8 Vitals: Last Vital Signs Temp 97.9 F 10/28/20 10:07 Pulse 80 10/28/20 10:07 Resp 16 10/28/20 10:07 BP 124/72 10/28/20 10:07 Pulse Ox 99 10/28/20 10:07 Discharge Plan Discharge Patient Disposition: Home Condition: Stable Prescriptions: Continued prenat.vits,tavo,xfr-zrou-qazhn Tablet 1 tab PO DAILY RF: 0 polyethylene glycol 3350 [Miralax] 17 gram/dose powder 17 g PO BID RF: 0 ferrous sulfate 325 mg (65 mg iron) tablet,delayed release (DR/EC) 325 mg PO DAILY RF: 0 Discharge Orders: Discharge Order (Routine); Ordered 10/28/20 Ordered By: Sneha Guzman Patient Instructions: Opioid Safety Discharge Attestations Time Spent in Discharge Care*: less than 30 min Quality Metrics Clinical Quality Measures During this hospital stay, did patient experience: None Coding Level of Care Code Acute g [facility] note Diagnoses state Z39.2
[2020-10-28 16:40] VITALS: BP 131/75; PULSE 88; RESP 16; TEMP 36.8; O2SAT 99
[2020-10-28 20:20] VITALS: BP 143/96; PULSE 96; RESP 16; TEMP 37.2
--- NOTE | 2020-10-29 08:14 | ANE.PACU2 ---
Inpatient post-anesthesia follow up: Airway intact: Yes Vital signs: Temperature 98.9 F Pulse Rate 96 Respiratory Rate 16 Blood Pressure 143/96 Pulse Oximetry 99 Oxygen Delivery Me thod Room Air Oxygen Flow Rate Fraction of Inspir ed Oxygen Hydration adequate: Yes Nausea and vomiting: No Pain level: 2 Mental status: Baseline
== END 2020-10-28 20:25 | disposition home or self-care (01) | DRG 807 ==
PROVIDERS: Admitting Provider Obstetrics & Gynecology; Visit Provider Obstetrics & Gynecology
DX: O69.2XX0 Labor and delivery complicated by other cord entanglement, with compression, not applicable or unspecified (principal); Z37.0 Single live birth; O99.214 Obesity complicating childbirth; O99.02 Anemia complicating childbirth; D64.9 Anemia, unspecified; O99.344 Other mental disorders complicating childbirth; F41.9 Anxiety disorder, unspecified; Z3A.39 39 weeks gestation of pregnancy; O75.89 Other specified complications of labor and delivery; K59.00 Constipation, unspecified
CPT/HCPCS: 36415; 51702; 59025; 59409; 83986; 85025; 85027; 96374; 96375; 99211; J2405; J2795; J3010

== ENCOUNTER → 2021-05-13 13:06 | Outpatient (BNVA) | payer BC, MEDICAID, SELFPAY | PROVIDERS: PCP Obstetrics & Gynecology; Visit Provider Obstetrics & Gynecology | DX: O99.212 Obesity complicating pregnancy, second trimester (principal); O09.899 Supervision of other high risk pregnancies, unspecified trimester; Z3A.00 Weeks of gestation of pregnancy not specified | CPT/HCPCS: 80307; 81000; 84443; 85025; 86592; 86762; 86803; 86850; 86900; 87086; 87340; 87806; 88175 ==

== ENCOUNTER 2021-05-18 08:17 | Emergency (ER) | payer BC, MEDICAID, SELFPAY ==
[2021-05-18 08:26] VITALS: BP 118/73; PULSE 101; RESP 18; TEMP 37.1; O2SAT 100; BMI 32.0
[2021-05-18 09:36] LABS: Basophils % 0.1 %; Eosinophils % 0.1 %; Hematocrit 34.8 % (37.0-47.0); Hemoglobin 11.7 g/dL (11.5-15.3); Lymphocytes # 1.4 10^3/uL (0.8-4.8); Mean Corpuscular HGB Conc 33.6 g/dL (30.0-36.0); Mean Corpuscular Hemoglobin 31.1 pg (28.0-34.0); Mean Corpuscular Volume 92.6 fl (81-99); Monocytes # 0.7 10^3/uL (0.2-0.9); Neutrophils # 5.32 10^3/uL (1.8-7.7); Neutrophils % 71.4 %; Nucleated Red Blood Cells % 0 %; Platelet Count 212 10^3/cmm (130-400); Red Blood Count 3.76 10^6/uL (4.1-5.3); Red Cell Distribution Width 13.1 % (12.1-15.1); White Blood Count 7.5 10^3/uL (4.0-10.0)
[2021-05-18] MEDS: sodium chloride 0.9% 500 ML 999 ML IV (09:39)
--- NOTE | 2021-05-18 09:55 | ED_ITS ---
HPI - Fever General: Chief Complaint: Fever Stated Complaint: fever Time Seen by Provider: 05/18/21 08:20 Source: patient Mode of arrival: ambulatory Limitations: no limitations History of Present Illness: 20-year-old female presents emergency room complaining of fever and elevated blood pressure. She reports a temp at home of 103 is a low-grade temp here he also reported markedly elevated blood pressures at home here blood pressures are normal. She denies any dysuria urgency frequency cough or shortness of breath she has had some generalized mild myalgias. She reports that she supposed to follow-up with her primary care doctor later this week for reevaluation of blood pressure. No vaginal bleeding no pelvic pain MD elicited complaint: fever Pertinent past history: other (15 weeks gestation) Onset (ago): day(s) Exacerbating factors: nothing Relieving factors: nothing Associated symptoms: Reports myalgias; Deny abdominal pain, flank pain, chills, chest pain, confusion, cough, diarrhea, dysuria, extremity pain, headache(s), nasal congestion, nausea, night sweats, rash, rhinorrhea, short of breath, sinus pain, stiffness, sore throat, vaginal discharge, vomiting or weight loss Treatments prior to arrival fever: none Review of Systems Const: Denies: chills or night sweats ENMT: Denies: nasal congestion or sinus pain Card: Denies: chest pain Resp: Reports: non-productive cough; Denies: dyspnea or productive cough GI: Denies: abdominal pain, nausea, vomiting or diarrhea : Denies: flank pain, dysuria or vaginal discharge Musc: Denies: extremity pain Skin/Breast: Denies: rash or pruritus Neuro: Denies: headache(s) or confusion PFSH ED PFSH: Medical History No pertinent past medical history neghx: htn,dm,thyroid,dvt/pe,herpes ---denies partner with herpes PCP: None Surgical History History of tonsillectomy and adenoidectomy (~2007) Family History Grandmother Diabetes Maternal Denies family history of Colon cancer Ovarian cancer Heart disease Hypercholesteremia Breast cancer Hypertension Uterine cancer Thyroid disease Stroke Physical Exam Const: COMMON NORMALS: no acute distress GENERAL APPEARANCE: cooperative and comfortable ORIENTATION/CONSCIOUSNESS: Yes awake, Yes oriented to person, Yes oriented to place and Yes oriented to time HENMT: COMMON NORMALS: normocephalic, atraumatic and hearing grossly normal bilaterally HEAD & SCALP: normocephalic and atraumatic Neck/C-Spine: COMMON NORMALS: no JVD Resp: COMMON NORMALS: normal respiratory effort, No retractions, No use of accessory muscles and clear to auscultation bilaterally AUSCULTATION: clear to auscultation bilaterally Cardio: COMMON NORMALS: no JVD, regular rate, regular rhythm and No murmurs present (Cardio) RATE: regular rate RHYTHM: regular rhythm GI: COMMON NORMALS: Soft to palpation and No hepatosplenomegaly present AUSCULTATION: Yes normoactive bowel sounds PALPATION: Yes Soft to palpation, No Tenderness to palpation present (GI), No Guarding due to palpation present (GI) and Yes No hepatosplenomegaly present Extremity: COMMON NORMALS: normal to inspection, capillary refill normal, no clubbing, cyanosis or edema, no calf tenderness and no pedal edema Neuro: SENSORIUM/ORIENTATION: Yes oriented to person, Yes oriented to place and Yes oriented to time Skin: COMMON NORMALS: no rashes or lesions noted GENERAL SKIN EXAM: no rashes or lesions noted Course Vital Signs: Vital signs: Vital Signs Temperature 99.3 F 05/18/21 11:22 Pulse Rate 97 05/18/21 11:22 Respiratory Rate 18 05/18/21 11:22 Blood Pressure 117/64 05/18/21 11:22 Pulse Oximetry 100 05/18/21 11:22 MDM - Fever Medical Decision Making Labs reviewed. No significant abnormalities respiratory panel pending. Blood p ressure in the normal range no recommendations this time is not having any fever we will contact her when we get the Covid test back return if has further problems to follow-up for recheck of her blood pressure with her primary unit control worker later this week Medical Records I reviewed the patient's medical records. Lab Data I reviewed the patient's lab results. : 05/18/21 09:13 05/18/21 09:13 Laboratory Results WBC 7.5 10^3/uL (4.0-10.0) 05/18/21 09:13 RBC 3.76 10^6/uL (4.1-5.3) L 05/18/21 09:13 Hgb 11.7 g/dL (11.5-15.3) 05/18/21 09:13 Hct 34.8 % (37.0-47.0) L 05/18/21 09:13 MCV 92.6 fl (81-99) 05/18/21 09:13 MCH 31.1 pg (28.0-34.0) 05/18/21 09:13 MCHC 33.6 g/dL (30.0-36.0) 05/18/21 09:13 RDW 13.1 % (12.1-15.1) 05/18/21 09:13 Plt Count 212 10^3/cmm (130-400) 05/18/21 09:13 MPV 10.0 fL (7.4-10.4) 05/18/21 09:13 Neut % (Auto) 71.4 % 05/18/21 09:13 Lymph % (Auto) 19.0 % 05/18/21 09:13 [place] % (Auto) 9.0 % 05/18/21 09:13 Eos % (Auto) 0.1 % 05/18/21 09:13 Baso % (Auto) 0.1 % 05/18/21 09:13 Neut # (Auto) 5.32 10^3/uL (1.8-7.7) 05/18/21 09:13 Lymph # (Auto) 1.4 10^3/uL (0.8-4.8) 05/18/21 09:13 [place] # (Auto) 0.7 10^3/uL (0.2-0.9) 05/18/21 09:13 Eos # (Auto) 0.0 10^3/uL (0.0-0.8) 05/18/21 09:13 Baso # (Auto) 0.0 10^3/uL (0.0-0.1) 05/18/21 09:13 Nucleated RBC % (auto) 0 % 05/18/21 09:13 Nucleated RBCs # 0.0 /100WBC 05/18/21 09:13 Sodium 137 mmol/L (136-145) 05/18/21 09:13 Potassium 3.9 mmol/L (3.5-5.1) 05/18/21 09:13 Chloride 103 mmol/L (98-107) 05/18/21 09:13 Carbon Dioxide 23 mmol/L (22-29) 05/18/21 09:13 Anion Gap 14.9 (5-19) 05/18/21 09:13 BUN 7 mg/dL (6-20) 05/18/21 09:13 Creatinine 0.5 mg/dL (0.5-0.9) 05/18/21 09:13 GFR Calculation 155.7 mL/min (90-130) H 05/18/21 09:13 Glucose 95 mg/dL (65-115) 05/18/21 09:13 Calculated Osmolality 282 mOsm/kg (285-295) L 05/18/21 09:13 Calcium 9.3 mg/dL (8.5-10.5) 05/18/21 09:13 Total Bilirubin 0.7 mg/dL (0.15-1.2) 05/18/21 09:13 AST 18 U/L (0-32) 05/18/21 09:13 ALT 13 U/L (0-33) 05/18/21 09:13 Alkaline Phosphatase 57 IU/L (35-105) 05/18/21 09:13 Total Protein 6.5 g/dL (6.6-8.7) L 05/18/21 09:13 Albumin 4.0 g/dL (3.5-5.2) 05/18/21 09:13 Globulin 2.5 g/dL (1.3-4.6) 05/18/21 09:13 Urine Color Yellow (Yellow) 05/18/21 09:19 Urine Appearance Sl hazy (CLEAR) 05/18/21 09:19 Urine pH 5 (5-7) 05/18/21 09:19 Ur Specific [place] 1.010 (1.005-1.030) 05/18/21 09:19 Urine Protein Neg (Negative) 05/18/21 09:19 Urine Glucose (UA) Norm (Normal) 05/18/21 09:19 Urine Ketones Negative (Negative) 05/18/21 09:19 Urine Blood Neg (Negative) 05/18/21 09:19 Urine Nitrate Negative (Negative) 05/18/21 09:19 Urine Bilirubin Neg (Negative) 05/18/21 09:19 Urine Urobilinogen Norm mg/dL (Negative) 05/18/21 09:19 Ur Leukocyte Esterase Negative (Negative) 05/18/21 09:19 Urine RBC None /hpf (0-2) 05/18/21 09:19 Urine WBC 0-4 /hpf (0-5) H 05/18/21 09:19 Ur Squamous Epith Cells 15-25 /hpf (0-5) H 05/18/21 09:19 Amorphous Sediment Not Reportable 05/18/21 09:19 Urine Bacteria Trace /hpf (NONE) 05/18/21 09:19 Urine Mucus Trace /hpf 05/18/21 09:19 Discharge Plan Discharge Patient Disposition: Home Clinical Impression: Fever, Transient elevated blood pressure, Second trimester Condition: Stable Prescriptions: No Action prenat.vits,tavo,[id number] Tablet 1 tab PO DAILY 0RF Discharge Orders: Discharge ED (Routine); Ordered 05/18/21 Ordered By: Nima Quijano Referrals: Bing Carnes FNP [Primary Care Provider] - Discharge Diet: Usual diet Discharge Activity: Increase activity as tolerated Patient Instructions: Opioid Safety Activity Restrictions/Additional Instructions: Follow-up with your unit control worker later this week to reevaluate blood pressure. Our staff will contact you with results of your Covid and flu swabs today. Coding Level of Care Code ED Custom Wood Stair Builder for Yajaira Stanley
[2021-05-18 10:02] LABS: Alanine Aminotransferase 13 U/L (0-33); Alkaline Phosphatase 57 IU/L (35-105); Blood Urea Nitrogen 7 mg/dL (6-20); Calcium 9.3 mg/dL (8.5-10.5); Carbon Dioxide 23 mmol/L (22-29); Chloride 103 mmol/L (98-107); Globulin 2.5 g/dL (1.3-4.6); Glomerular Filtration Rate 155.7 mL/min (90-130); Glucose 95 mg/dL (65-115); Osmolality Calculated 282 mOsm/kg (285-295); Sodium 137 mmol/L (136-145); Total Bilirubin 0.7 mg/dL (0.15-1.2); Total Protein 6.5 g/dL (6.6-8.7)
[2021-05-18 10:04] LABS: Anion Gap 14.9 (5-19); Potassium 3.9 mmol/L (3.5-5.1)
[2021-05-18 10:05] LABS: Aspartate Amino Transferase 18 U/L (0-32)
[2021-05-18 10:23] VITALS: BP 151/74; PULSE 99; RESP 14; O2SAT 98
[2021-05-18 10:59] LABS: Blood Urine Neg (Negative); Glucose Urine UA Norm (Normal); Ketones Urine Negative (Negative); Protein Urine Neg (Negative); Urine Appearance SL Hazy (CLEAR); Urine Color Yellow (Yellow); pH Urine 5 (5-7)
[2021-05-18 11:00] LABS: Add Urine Microscopic? YES; Bilirubin Urine Neg (Negative); Leukocyte Esterase Urine Negative (Negative); Nitrate Urine Negative (Negative); Urobilinogen Urine Norm (Negative)
[2021-05-18 11:01] LABS: Add Urine Culture? No; Bacteria Urine TRACE /hpf; Mucus Urine TRACE /hpf; Squamous Epithelial Cell Urine 15-25 /hpf (0-5); WBC Urine 0-4 /hpf (0-5)
[2021-05-18 11:22] VITALS: BP 117/64; PULSE 97; RESP 18; TEMP 37.4; O2SAT 100
[2021-05-18 12:12] LABS: Adenovirus Not Detected (NOT DETECT); Chlamydia Pneumoniae Not Detected (NOT DETECT); Coronavirus 229E,HKU1,NL63,OC4 Not Detected (NOT DETECT); Human Metapneumovirus Not Detected (NOT DETECT); Human Rhinovirus/Enterovirus Not Detected (NOT DETECT); Influenza A Not Detected (NOT DETECT); Influenza A H1 Not Detected (NOT DETECT); Influenza A H1-2009 Not Detected (NOT DETECT); Influenza A H3 Not Detected (NOT DETECT); Influenza B Not Detected (NOT DETECT); Mycoplasma Pneumoniae Not Detected (NOT DETECT); Parainfluenza Virus Type 1 Not Detected (NOT DETECT); Parainfluenza Virus Type 2 Not Detected (NOT DETECT); Parainfluenza Virus Type 3 Not Detected (NOT DETECT); Parainfluenza Virus Type 4 Not Detected (NOT DETECT); Respiratory Syncytial Virus A Not Detected (NOT DETECT); Respiratory Syncytial Virus B Not Detected (NOT DETECT); SARS-COV-2 Not Detected (NOT DETECT)
== END 2021-05-18 11:20 | disposition home or self-care (01) ==
PROVIDERS: Emergency Provider Family Medicine; PCP Nurse Practitioner Family
DX: O26.892 Other specified pregnancy related conditions, second trimester (principal); R50.9 Fever, unspecified; O99.412 Diseases of the circulatory system complicating pregnancy, second trimester; R03.0 Elevated blood-pressure reading, without diagnosis of hypertension; Z3A.15 15 weeks gestation of pregnancy
CPT/HCPCS: 80053; 81001; 85025; 87635; 96360; 96361; 99283; J7040

== ENCOUNTER → 2021-05-20 09:37 | Outpatient (BNVA) | payer BC, MEDICAID, SELFPAY | PROVIDERS: PCP Nurse Practitioner Family; Visit Provider Obstetrics & Gynecology | DX: O09.899 Supervision of other high risk pregnancies, unspecified trimester (principal); O99.212 Obesity complicating pregnancy, second trimester; Z87.59 Personal history of other complications of pregnancy, childbirth and the puerperium; O13.9 Gestational [pregnancy-induced] hypertension without significant proteinuria, unspecified trimester; Z3A.00 Weeks of gestation of pregnancy not specified | CPT/HCPCS: 81000; 87086 ==

== ENCOUNTER → 2021-05-21 00:01 | Outpatient (BNVA) | payer BC, MEDICAID, SELFPAY | PROVIDERS: PCP Nurse Practitioner Family; Visit Provider Obstetrics & Gynecology | DX: O09.899 Supervision of other high risk pregnancies, unspecified trimester (principal); Z3A.00 Weeks of gestation of pregnancy not specified | CPT/HCPCS: 84156 ==

== ENCOUNTER → 2021-06-03 15:51 | Outpatient (BNVA) | payer BC, MEDICAID, SELFPAY | PROVIDERS: PCP Nurse Practitioner Family; Visit Provider Obstetrics & Gynecology | DX: O09.899 Supervision of other high risk pregnancies, unspecified trimester (principal); Z3A.00 Weeks of gestation of pregnancy not specified | CPT/HCPCS: 81000 ==

== ENCOUNTER → 2021-07-05 14:22 | Outpatient (BNVA) | payer BC, MEDICAID, SELFPAY | PROVIDERS: PCP Nurse Practitioner Family; Visit Provider Obstetrics & Gynecology | DX: O09.899 Supervision of other high risk pregnancies, unspecified trimester (principal); Z3A.00 Weeks of gestation of pregnancy not specified | CPT/HCPCS: 81000 ==

== ENCOUNTER → 2021-08-23 10:57 | Outpatient (BNVA) | payer BC, MEDICAID, SELFPAY | PROVIDERS: PCP Nurse Practitioner Family; Visit Provider Obstetrics & Gynecology | DX: Z36.87 Encounter for antenatal screening for uncertain dates (principal) | CPT/HCPCS: 76816 ==

== ENCOUNTER → 2021-08-30 09:13 | Outpatient (BNVA) | payer BC, MEDICAID, SELFPAY | PROVIDERS: PCP Nurse Practitioner Family; Visit Provider Obstetrics & Gynecology | DX: O09.899 Supervision of other high risk pregnancies, unspecified trimester (principal); Z3A.00 Weeks of gestation of pregnancy not specified | CPT/HCPCS: 81000; 82950; 85025 ==

== ENCOUNTER → 2021-09-19 14:31 | Outpatient (BNVA) | payer BC, MEDICAID, SELFPAY | PROVIDERS: PCP Nurse Practitioner Family; Visit Provider Obstetrics & Gynecology | DX: O09.899 Supervision of other high risk pregnancies, unspecified trimester (principal); Z3A.00 Weeks of gestation of pregnancy not specified | CPT/HCPCS: 81000 ==

== ENCOUNTER 2021-09-27 15:31 | Outpatient (CLI) | payer BC, MEDICAID, SELFPAY ==
[2021-09-27 15:40] VITALS: BP 118/71; PULSE 95; TEMP 36.7
[2021-09-27 15:53] VITALS: RESP 16
[2021-09-27 15:57] VITALS: BMI 34.4
[2021-09-27 16:12] LABS: Basophils % 0.2 %; Eosinophils # 0.1 10^3/uL (0.0-0.8); Eosinophils % 1.1 %; Hematocrit 35.2 % (37.0-47.0); Hemoglobin 11.6 g/dL (11.5-15.3); Lymphocytes # 2.4 10^3/uL (0.8-4.8); Lymphocytes % 26.5 %; Mean Corpuscular Hemoglobin 31.4 pg (28.0-34.0); Mean Corpuscular Volume 95.4 fl (81-99); Mean Platelet Volume 9.7 fL (7.4-10.4); Monocytes # 0.6 10^3/uL (0.2-0.9); Monocytes % 6.8 %; Neutrophils # 5.92 10^3/uL (1.8-7.7); Nucleated Red Blood Cells % 0 %; Platelet Count 206 10^3/cmm (130-400); Red Blood Count 3.69 10^6/uL (4.1-5.3); Red Cell Distribution Width 13.3 % (12.1-15.1); White Blood Count 9.1 10^3/uL (4.0-10.0)
[2021-09-27 16:21] VITALS: BP 116/70; PULSE 101
[2021-09-27 16:32] LABS: Alanine Aminotransferase 7 U/L (0-33); Albumin Level 3.5 g/dL (3.5-5.2); Alkaline Phosphatase 92 IU/L (35-105); Aspartate Amino Transferase 12 U/L (0-32); Blood Urea Nitrogen 5 mg/dL (6-20); Calcium 8.6 mg/dL (8.5-10.5); Carbon Dioxide 21 mmol/L (22-29); Chloride 106 mmol/L (98-107); Globulin 2.8 g/dL (1.3-4.6); Glomerular Filtration Rate 201.5 mL/min (90-130); Glucose 110 mg/dL (65-115); Osmolality Calculated 284 mOsm/kg (285-295); Sodium 138 mmol/L (136-145); Total Bilirubin 0.7 mg/dL (0.15-1.2); Total Protein 6.3 g/dL (6.6-8.7); Uric Acid 3.8 mg/dL (2.4-5.7)
[2021-09-27 16:33] LABS: Urine Creatinine 63 mg/dL (28-217); Urine Protein Random 8 mg/dL
[2021-09-27 16:37] VITALS: BP 121/71; PULSE 98
[2021-09-27 16:37] LABS: UPRO/UCREAT Ratio 0.13 mg/mg CR
[2021-09-27 16:54] LABS: Add Urine Culture? Yes; Add Urine Microscopic? YES; Bacteria Urine TRACE /hpf; Bilirubin Urine Neg (Negative); Blood Urine Neg (Negative); Glucose Urine UA Norm (Normal); Ketones Urine Negative (Negative); Leukocyte Esterase Urine 2+ (Negative); Nitrate Urine Negative (Negative); Protein Urine Neg (Negative); Squamous Epithelial Cell Urine 80-100 /hpf (0-5); Sulfosalicylic Acid Urine Negative (Negative); Urine Appearance Clear (CLEAR); Urine Color Yellow (Yellow); Urobilinogen Urine Norm (Negative); WBC Urine TOO NUMEROUS TO CNT /hpf (0-5); pH Urine 8 (5-7)
== END 2021-09-27 16:45 | disposition home or self-care (01) ==
LOC: OPOB 15:32 → OBGYN 15:34
PROVIDERS: PCP Nurse Practitioner Family; Visit Provider Obstetrics & Gynecology
DX: O16.9 Unspecified maternal hypertension, unspecified trimester (principal); Z3A.00 Weeks of gestation of pregnancy not specified
CPT/HCPCS: 36415; 59025; 80053; 81000; 81001; 82570; 84156; 84550; 85025; 87086

== ENCOUNTER 2021-09-30 18:04 | Outpatient (CLI) | payer BC, MEDICAID, SELFPAY ==
[2021-09-30] VITALS (13 sets, daily range): BP systolic 104–129; BP diastolic 59–80; PULSE 84–106; RESP 18; BMI 34.0
[2021-09-30 20:23] LABS: Alanine Aminotransferase 6 U/L (0-33); Albumin Level 3.5 g/dL (3.5-5.2); Alkaline Phosphatase 97 U/L (35-105); Anion Gap 14.9 (5-19); Aspartate Amino Transferase 12 U/L (0-32); Blood Urea Nitrogen 7 mg/dL (6-20); Calcium 8.7 mg/dL (8.5-10.5); Carbon Dioxide 23 mmol/L (22-29); Chloride 104 mmol/L (98-107); Globulin 2.5 g/dL (1.3-4.6); Glomerular Filtration Rate 280.8 mL/min (90-130); Glucose 77 mg/dL (65-115); Osmolality Calculated 283 mOsm/kg (285-295); Potassium 3.9 mmol/L (3.5-5.1); Sodium 138 mmol/L (136-145); Total Bilirubin 0.7 mg/dL (0.15-1.2); Uric Acid 3.4 mg/dL (2.4-5.7)
[2021-09-30 20:24] LABS: Basophils % 0.2 %; Eosinophils # 0.2 10^3/uL (0.0-0.8); Eosinophils % 1.5 %; Hematocrit 34.6 % (37.0-47.0); Hemoglobin 11.6 g/dL (11.5-15.3); Lymphocytes # 2.9 10^3/uL (0.8-4.8); Lymphocytes % 22.9 %; Mean Corpuscular HGB Conc 33.5 g/dL (30.0-36.0); Mean Corpuscular Hemoglobin 31.9 pg (28.0-34.0); Mean Corpuscular Volume 95.1 fl (81-99); Mean Platelet Volume 9.7 fL (7.4-10.4); Monocytes # 0.8 10^3/uL (0.2-0.9); Monocytes % 6.5 %; Neutrophils # 8.75 10^3/uL (1.8-7.7); Neutrophils % 68.4 %; Nucleated Red Blood Cells % 0 %; Platelet Count 192 10^3/cmm (130-400); Red Blood Count 3.64 10^6/uL (4.1-5.3); Red Cell Distribution Width 13.6 % (12.1-15.1); White Blood Count 12.8 10^3/uL (4.0-10.0)
[2021-09-30 20:40] LABS: Specific Gravity, Urine 1.015 (1.005-1.030); Urine Appearance Clear (CLEAR); Urine Color Yellow (Yellow); pH Urine 6 (5-7)
[2021-09-30 20:41] LABS: Add Urine Microscopic? YES; Bilirubin Urine Neg (Negative); Blood Urine Neg (Negative); Glucose Urine UA Norm (Normal); Ketones Urine Negative (Negative); Leukocyte Esterase Urine 1+ (Negative); Nitrate Urine Negative (Negative); Protein Urine Neg (Negative); Urine Creatinine 109 mg/dL (28-217); Urine Protein Random 8 mg/dL; Urobilinogen Urine Norm (Negative)
[2021-09-30 20:42] LABS: Mucus Urine 2+ /hpf
[2021-09-30 20:43] LABS: RBC Urine 0-4 /hpf (0-2); UPRO/UCREAT Ratio 0.07 mg/mg CR
[2021-09-30 20:44] LABS: Add Urine Culture? No; Bacteria Urine 1+ /hpf; WBC Urine 0-4 /hpf (0-5)
== END 2021-09-30 21:05 | disposition home or self-care (01) ==
LOC: OPOB 18:17 → OBGYN 18:18
PROVIDERS: Obstetrics & Gynecology; PCP Nurse Practitioner Family; Visit Provider Obstetrics & Gynecology
DX: O16.9 Unspecified maternal hypertension, unspecified trimester (principal); Z3A.00 Weeks of gestation of pregnancy not specified; R51.9 Headache, unspecified
CPT/HCPCS: 36415; 59025; 80053; 81001; 82570; 84156; 84550; 85025; 99211

== ENCOUNTER → 2021-10-04 11:26 | Outpatient (BNVA) | payer BC, MEDICAID, SELFPAY | PROVIDERS: PCP Nurse Practitioner Family; Visit Provider Obstetrics & Gynecology | DX: O09.899 Supervision of other high risk pregnancies, unspecified trimester (principal); Z3A.00 Weeks of gestation of pregnancy not specified | CPT/HCPCS: 81000 ==

== ENCOUNTER → 2021-10-11 15:13 | Outpatient (BNVA) | payer BC, MEDICAID, SELFPAY | PROVIDERS: PCP Nurse Practitioner Family; Visit Provider Obstetrics & Gynecology | DX: O09.899 Supervision of other high risk pregnancies, unspecified trimester (principal); Z3A.00 Weeks of gestation of pregnancy not specified | CPT/HCPCS: 81000 ==

== ENCOUNTER → 2021-10-16 13:15 | Outpatient (BNVA) | payer BC, MEDICAID, SELFPAY | PROVIDERS: PCP Nurse Practitioner Family; Visit Provider Obstetrics & Gynecology | DX: O09.899 Supervision of other high risk pregnancies, unspecified trimester (principal); Z3A.00 Weeks of gestation of pregnancy not specified | CPT/HCPCS: 81000; 87081 ==

== ENCOUNTER 2021-10-24 19:40 | Outpatient (CLI) | payer BC, MEDICAID, SELFPAY ==
[2021-10-24] VITALS (17 sets, daily range): BP systolic 121–148; BP diastolic 67–78; PULSE 90–123; RESP 16; TEMP 35.8; O2SAT 97–100; BMI 34.7
[2021-10-24 20:25] LABS: Nitrazine Paper, PH Negative
[2021-10-24 20:29] LABS: Actim Prom Negative
[2021-10-24] MEDS: NIFEdipine ER (24 hr) 30 mg Tablet PO (20:38)
[2021-10-24] MEDS: NIFEdipine 10 mg Capsule 20 MG PO (22:15)
[2021-10-24] MEDS: sodium chloride 0.9% 1,000 ML 999 ML IV (22:16)
[2021-10-24] MEDS: terbutaline 1 mg/mL INJ 0.25 MG SUBCUT (23:04)
[2021-10-24] MEDS: acetaminophen 500 mg Tablet 1000 MG PO (23:11)
[2021-10-25] VITALS (12 sets, daily range): BP systolic 104–136; BP diastolic 55–71; PULSE 82–101
--- NOTE | 2021-10-25 06:25 | PC.NURSE ---
Nurse entered pt's room to adjust US monitor and pt stated I am hurting in my back. Nurse asked to rate pain and pt wouldn't rate pain. Pt stated When they gave me the medicine earlier, I could feel the contractions in my stomach and now they are in my back continuously, so I have no idea how to tell how far apart the contractions are. Nurse stated some contractions are being picked up on the monitor but they had spaced out from when she first arrived to the department. Nurse went to leave the room and pt asked When are they going to let me go home? Nurse stated Dr. Chaudhry would be in to see the pt this morning. Pt rolled her eyes and stated I hate him. I told Dr. Guzman in the office that I was uncomfortable with him and she stated she would take care of me whenever I came in. Nurse left the room.
--- NOTE | 2021-10-25 08:15 | PM.PN ---
Subjective Subjective: Ms. Duarte is a 20 year old patient with an LMP of 02/10/21, KELVIN of 11/17/21 based on her LMP and consistent with 12 week sonogram, placing her at 36-4/7 weeks gestation. Complaining of contractions Vitals/I&O/Wt Last Vital Signs Temp 96.4 F L 10/24/21 19:45 Pulse 83 10/25/21 05:04 Resp 16 10/24/21 19:59 BP 112/55 10/25/21 05:04 Pulse Ox 99 10/24/21 23:55 10/24/21 10/25/21 10/25/21 22:59 06:59 14:59 Intake Total 1000 / 1000 Balance 1000 / 1000 Weight last 48 hrs Weight 86.183 kg Physical Exam Narrative: GA: Alert and oriented ?3. Lungs: Clear to auscultation bilaterally. Heart: Regular rhythm and rate. Abdomen: Gravid, full the height equals dates, nontender. SUPERVISOR FELLING BUCKING: SVE; dilation: 2 cm, effacement: 50%, station: -3, presentation: Cephalic, membranes: Intact. Extremities: no edema, no cyanosis, no calves pain. heart tracing: Basal rate: 140's bpm, Variability: moderate, Accelerations: present, Decelerations: absent, Contraction: Irregular. A&P Assessment and plan (1) 36 weeks gestation of : Ms. Duarte is a 20 year old patient with an LMP of 02/10/21, KELVIN of 11/17/21 based on her LMP and consistent with 12 week sonogram, placing her at 36-4/7 weeks gestation. Came into labor and delivery complaining of contractions initially she was having contractions every 2-3 minutes. She was given nifedipine she continued to complain of contractions then she was given terbutaline contractions became irregular, no cervical changes was noted. Blood pressure has been within limits. Preeclampsia work-up was negative. Patient refers she is scheduled to be induced on Thursday due to gestational hypertension. Status: Acute (2) Gestational hypertension: Status: Acute Plan Discharge home. Instruct patient to follow-up with ELECTRO MECHANICAL ASSEMBLER provider at scheduled Attestations Medical Necessity Statement*: In my professional opinion per admitting diagnosis Coding Level of Care Code Acute Telesales Team Leader for Chg Fwd Diagnoses 36 weeks gestation of Z3A.36 Gestational hypertension O13.9
== END 2021-10-25 09:26 | disposition home or self-care (01) ==
LOC: OPOB 19:42 → OBGYN 19:43
PROVIDERS: PCP Nurse Practitioner Family; Visit Provider Obstetrics & Gynecology
DX: O47.03 False labor before 37 completed weeks of gestation, third trimester (principal); O13.9 Gestational [pregnancy-induced] hypertension without significant proteinuria, unspecified trimester; Z3A.36 36 weeks gestation of pregnancy
CPT/HCPCS: 36415; 59025; 81000; 83986; 84112; 87086; 99211; J3105; J7030

== ENCOUNTER 2021-10-30 05:27 | Inpatient (IN) | payer BC, MEDICAID, SELFPAY ==
[2021-10-29] VITALS (10 sets, daily range): BP systolic 113–128; BP diastolic 63–74; PULSE 86–100; TEMP 36.1; BMI 34.9
[2021-10-29 21:24] LABS: Basophils % 0.2 %; Eosinophils # 0.2 10^3/uL (0.0-0.8); Eosinophils % 1.9 %; Hematocrit 33.3 % (37.0-47.0); Hemoglobin 11.1 g/dL (11.5-15.3); Lymphocytes # 2.7 10^3/uL (0.8-4.8); Lymphocytes % 26.8 %; Mean Corpuscular HGB Conc 33.3 g/dL (30.0-36.0); Mean Corpuscular Hemoglobin 31.8 pg (28.0-34.0); Mean Corpuscular Volume 95.4 fl (81-99); Mean Platelet Volume 10.1 fL (7.4-10.4); Monocytes # 0.7 10^3/uL (0.2-0.9); Monocytes % 7.1 %; Neutrophils # 6.35 10^3/uL (1.8-7.7); Neutrophils % 63.4 %; Nucleated Red Blood Cells % 0 %; Platelet Count 191 10^3/cmm (130-400); Red Blood Count 3.49 10^6/uL (4.1-5.3); Red Cell Distribution Width 13.3 % (12.1-15.1)
[2021-10-29] MEDS: miSOPROStol 100 mcg tablet 25 MCG VAGINAL (21:37)
[2021-10-30] VITALS (55 sets, daily range): BP systolic 95–145; BP diastolic 49–84; PULSE 62–111; RESP 14–16; TEMP 36.2–36.4; O2SAT 79–100
[2021-10-30] MEDS: miSOPROStol 100 mcg tablet 25 MCG VAGINAL (01:46)
[2021-10-30] MEDS: fentaNYL 50 mcg/mL INJ 2mL IVP (05:55)
[2021-10-30] MEDS: lactated ringers 1,000 ML 999 ML IV ×2 (06:05→06:31)
--- NOTE | 2021-10-30 06:57 | ANES.PREANE2 ---
Pre-Anesthetic Assessment Height/Weight: Height 1.57 m Weight 86.636 kg Temp Pulse Resp BP Pulse Ox O2 Del Method 97.3 F L 94 14 109/71 100 10/30/21 02:22 10/30/21 06:55 10/30/21 05:55 10/30/21 06:55 10/30/21 06:55 10/30/21 02:22 Preop Diagnosis: IUP/ EFRAÍN Last intake: more that 8 hours Social No tobacco Airway Submandibular: within normal limits Cervical ROM: within normal limits Dentition: full Pulmonary None reported CV/HEM Hypertension PIH None reported Hepatic None reported GI Gastroesophageal Reflux Disease Metabolic None reported Musc/skel None reported Neuropsych None reported Anesthetic Plan ASA status: 2 Medications/Allergies Home Medications Medication Instructions Recorded Confirmed Last Taken Type prenat.vits,tavo,[id number] 1 tab PO DAILY 03/27/20 10/29/21 10/29/21 History aspirin 81 mg chewable tablet 81 mg PO DAILY 05/20/21 10/29/21 10/29/21 History nifedipine 30 mg tablet,extended 30 mg PO DAILY #30 tabs 05/20/21 10/29/21 10/29/21 Rx release 24 hr (Procardia XL) zinc sulfate 50 mg zinc (220 mg) 50 mg PO DAILY 05/20/21 10/30/21 10/29/21 History capsule buspirone 5 mg tablet 5 mg PO BID #60 tabs 07/05/21 10/29/21 10/29/21 Rx cimetidine 400 mg tablet 400 mg PO BID #60 tabs 09/27/21 10/29/21 10/29/21 Rx Allergies Allergy/AdvReac Type Severity Reaction Status Date / Time No Known Allergies Allergy Verified 10/29/21 23:57 Current Medications Generic Name Dose Route Start Last Admin Trade Name Freq PRN Reason Stop Dose Admin Fentanyl 25 - 100 mcg 10/29/21 20:58 10/30/21 05:55 Fentanyl 50 Mcg/Ml Inj 2ml IVP 25 mcg Q1H PRN Administration SEVERE PAIN Lactated Ringer's 1,000 mls @ 999 mls/hr 10/30/21 06:01 10/30/21 06:05 Lactated Ringers IV 999 mls/hr .Q1H1M PRN Administration See label comments PFSH Anesthesia Medical History No pertinent past medical history neghx: htn,dm,thyroid,dvt/pe,herpes ---denies partner with herpes PCP: None Surgical History History of tonsillectomy and adenoidectomy (~2007) Family History Grandmother Diabetes Maternal Denies family history of Colon cancer Ovarian cancer Heart disease Hypercholesteremia Breast cancer Hypertension Uterine cancer Thyroid disease Stroke Social History Smoking and tobacco status: former smoker Female Reproductive History : 2 Data Anesthesia : 10/29/21 20:10 Short CBC 10/29/21 Range/Units 20:10 WBC 10.0 (4.0-10.0) 10^3/uL Hgb 11.1 L (11.5-15.3) g/dL Hct 33.3 L (37.0-47.0) % MCV 95.4 (81-99) fl Plt Count 191 (130-400) 10^3/cmm Neut % (Auto) 63.4 % Neut # (Auto) 6.35 (1.8-7.7) 10^3/uL Cardiac Studies: No Data to Display
--- NOTE | 2021-10-30 07:03 | ANES.PROC ---
Anesthesia Procedures Procedure/Date: 10/30/21 Epidural: Time Out Performed: Yes Consents Signed: Procedure Consent Consent: requested by attending/covering physician, from patient, risks and benefits reviewed and patient agrees to proceed Lumbar Level: L3-L4 Epidural position: sitting Epidural procedure: sterile prep of area, 1% lidocaine to numb the area, 18 g needle, neg for paresthesia, test dose given (3cc of 2%Lido with 1:200 k epi), 0.2% Ropivacaine bolus ml (4cc and fentanyl 100 mcg), no systemic response, sterile dressing applied and 0.2% Ropiavacaine @ mls/hr (13cc/hour)
[2021-10-30] MEDS: oxytocin 30 UNIT/500 ML BAG IV (09:15)
[2021-10-30] MEDS: ondansetron 2 mg/ML SDV 2 mL 4 MG IVP (09:33)
--- NOTE | 2021-10-30 10:55 | PM.OPHPUD ---
Labor & Delivery H&P Update Date of Procedure: October 30, 2021 Date H&P Performed: 10/24/20 H&P update information: I have reviewed H&P completed within last 30 days, I have examined patient prior to procedure and No changes to prior documentation Changes to previous documentation: The patient is here for induction of labor for gestational hypertension Admission Diagnosis: iup@ 37 weeks, 3 days. Preop diagnosis: IUP/ Related Problem List Diagnoses (1) Short interval between pregnancies affecting , antepartum: (2) Supervision of other high risk , antepartum: (3) Anemia affecting : (4) Gestational hypertension: (5) Obesity affecting :
[2021-10-30] MEDS: dextrose 5%-lactated ringers 1,000 ML 125 ML IV (11:56)
--- NOTE | 2021-10-30 12:52 | PM.DELIVERY ---
Delivery Note: Date of delivery: October 30, 2021 Pre-delivery diagnoses: iup@ 37w3d, gestational hypertension Post-delivery diagnoses: same-delivered Procedure: Delivering Physician: suleman Estimated blood loss (mL): 25 Findings: term female in the straight OP presentation with a single nuchal cord reduced at the perineum. Pre-Delivery Course: The patient was admitted for induction for gestational hypertension. She had two doses of cytotec and began laboring on her own. She received an epidural for pain management. She had AROM performed at 4.5 cm dilation. Fluid was clear. A small dose of pitocin was required as her contractions spaced out. She had complete cervical dilation and began pushing. There were decelerations with the pushes. The pitocin was stopped, a left hip pillow was placed and oxygen by mask started for the mother. Delivery: The patient had complete cervical dilation and began to push. The head delivered in the straight OP position over an intact perineum under epidural anesthesia. A single nuchal cord was reduced at the perineum. The nose and mouth were bulb suctioned. The shoulders and body delivered atraumatically. The baby was placed onto the mother's abdomen. The cord was clamped and cut. Cord blood was obtained. The placenta delivered spontaneously. It was inspected and found to be intact. Inspection of the perineum revealed no lacerations and no repair was required. Estimated blood loss 25 mL. Apgars on baby were 8 at 1 minute and 9 at 5 minutes. Weight of baby is 7 pounds 2 ounces. Mother and baby were stable post delivery. History History History 2 Term 1 0 Miscarriages/Ectopic 0 Living Children 1 Coding Level of Care Code Acute Belt And Link Shop Supervisor for Chg Jaden
--- NOTE | 2021-10-30 13:05 | ANE.PACU2 ---
Inpatient post-anesthesia follow up: Airway intact: Yes Vital signs: Temperature 97.5 F Pulse Rate 88 Respiratory Rate 16 Blood Pressure 110/71 Pulse Oximetry 99 Oxygen Delivery Me thod Room Air Oxygen Flow Rate Fraction of Inspir ed Oxygen Hydration adequate: Yes Nausea and vomiting: No Pain level: 1 Mental status: Baseline
--- NOTE | 2021-10-30 14:01 | ANES.PREANE2 ---
Pre-Anesthetic Assessment Height/Weight: Height 1.57 m Weight 86.636 kg Temp Pulse Resp BP Pulse Ox O2 Del Method 97.5 F L 88 16 110/71 99 10/30/21 11:44 10/30/21 13:51 10/30/21 12:51 10/30/21 13:51 10/30/21 07:31 10/30/21 02:22 Preop Diagnosis: Desired infertility Post tubal ligation Familial anesthetic complications: None Was Beta Peyton taken within 24 hours: N/A Was Clonidine taken within 24 hours: N/A Last intake: 10/29/21 Social No alcohol and No tobacco Exam alert, oriented x 3, clear to auscultation bilaterally and regular rate & rhythm Airway Submandibular: within normal limits Cervical ROM: within normal limits Mallampati: Class II Dentition: full History/ROS No significant complaints Pulmonary None reported CV/HEM None reported None reported Hepatic None reported GI Gastroesophageal Reflux Disease Metabolic None reported Musc/skel None reported Neuropsych None reported Anesthetic Plan ASA status: 2 Anesthesia: Anesthesia Evaluation and Regional (specify below) (Spinal) Other: We discussed risk and benefits of spinal anesthesia including infection, paralysis/catastrophic nerve injury, back bruising/pain, PDPH, conversion to general in case of spinal failure, intraoperative and PONV, life threatening allergic reaction, post operative ICU admission requiring prolonged intubation, stroke, heart attack. Risk of > 500 ml blood loss (7ml/kg in children): No Medications/Allergies Home Medications Medication Instructions Recorded Confirmed Last Taken Type prenat.vits,tavo,qqu-jazg-upzyy 1 tab PO DAILY 03/27/20 10/29/21 10/29/21 History aspirin 81 mg chewable tablet 81 mg PO DAILY 05/20/21 10/29/21 10/29/21 History nifedipine 30 mg tablet,extended 30 mg PO DAILY #30 tabs 05/20/21 10/29/21 10/29/21 Rx release 24 hr (Procardia XL) zinc sulfate 50 mg zinc (220 mg) 50 mg PO DAILY 05/20/21 10/30/21 10/29/21 History capsule buspirone 5 mg tablet 5 mg PO BID #60 tabs 07/05/21 10/29/21 10/29/21 Rx cimetidine 400 mg tablet 400 mg PO BID #60 tabs 08/02/0610/29/21 10/29/21 Rx Allergies Allergy/AdvReac Type Severity Reaction Status Date / Time No Known Allergies Allergy Verified 10/29/21 23:57 Current Medications Generic Name Dose Route Start Last Admin Trade Name Freq PRN Reason Stop Dose Admin Fentanyl 25 - 100 mcg 10/29/21 20:58 10/30/21 05:55 Fentanyl 50 Mcg/Ml Inj 2ml IVP 25 mcg Q1H PRN Administration SEVERE PAIN Dextrose/Lactated Ringer's 1,000 mls @ 125 mls/hr 10/29/21 20:58 10/30/21 11:56 Dextrose 5%-Lactated Ringers IV 125 mls/hr .Q8H PRN Administration per label comments Ropivacaine 200 mg in 100 mls @ 13 mls/hr 10/30/21 06:15 10/30/21 07:09 Naropin Premix EPIDURAL 13 mls/hr .Q7H42M ROBERT Administration Lactated Ringer's 1,000 mls @ 999 mls/hr 10/30/21 06:01 10/30/21 07:04 Lactated Ringers IV 125 mls/hr .Q1H1M PRN Infusion See label comments Oxytocin 30 unit in 500 mls @ 1 mls/hr 10/30/21 09:15 10/30/21 11:00 Pitocin IV 7 milliunit/min .Q24H ROBERT 7 mls/hr Titration Protocol 1 MILLIUNIT/MIN Ondansetron HCl 4 mg 10/29/21 20:58 10/30/21 09:33 Ondansetron 2 Mg/Ml Sdv 2 Ml IVP 4 mg Q4H PRN Administration NAUSEA AND VOMITING PFSH Anesthesia Medical History No pertinent past medical history neghx: htn,dm,thyroid,dvt/pe,herpes ---denies partner with herpes PCP: None Surgical History History of tonsillectomy and adenoidectomy (~2007) Family History Grandmother Diabetes Maternal Denies family history of Colon cancer Ovarian cancer Heart disease Hypercholesteremia Breast cancer Hypertension Uterine cancer Thyroid disease Stroke Social History Smoking and tobacco status: former smoker Female Reproductive History : 2 Data Anesthesia : 10/29/21 20:10 Short CBC 10/29/21 Range/Units 20:10 WBC 10.0 (4.0-10.0) 10^3/uL Hgb 11.1 L (11.5-15.3) g/dL Hct 33.3 L (37.0-47.0) % MCV 95.4 (81-99) fl Plt Count 191 (130-400) 10^3/cmm Neut % (Auto) 63.4 % Neut # (Auto) 6.35 (1.8-7.7) 10^3/uL Cardiac Studies: No Data to Display
--- NOTE | 2021-10-30 14:04 | ANE.PACU2 ---
Inpatient post-anesthesia follow up: Vital signs: Temperature 97.5 F Pulse Rate 88 Respiratory Rate 16 Blood Pressure 110/71 Pulse Oximetry 99 Oxygen Delivery Me thod Room Air Oxygen Flow Rate Fraction of Inspir ed Oxygen
[2021-10-30] MEDS: ibuprofen 800 mg tablet PO (18:52)
[2021-10-30] MEDS: docusate sodium 100 mg Capsule PO (18:52)
[2021-10-30] MEDS: BuSPIRONE 10 mg Tablet 5 MG PO (21:30)
[2021-10-30] MEDS: lanolin oint 7 gm 1 APPLIC TOPICAL (21:54)
--- NOTE | 2021-10-30 22:22 | PC.NURSE ---
pt in nursery at 2100.
[2021-10-31] VITALS (8 sets, daily range): BP systolic 96–132; BP diastolic 55–71; PULSE 70–85; RESP 16; TEMP 36.3
[2021-10-31 00:37] LABS: Hematocrit 30.6 % (37.0-47.0); Hemoglobin 10.3 g/dL (11.5-15.3); Mean Corpuscular HGB Conc 33.7 g/dL (30.0-36.0); Mean Corpuscular Hemoglobin 32.4 pg (28.0-34.0); Mean Corpuscular Volume 96.2 fl (81-99); Mean Platelet Volume 9.8 fL (7.4-10.4); Platelet Count 160 10^3/cmm (130-400); Red Blood Count 3.18 10^6/uL (4.1-5.3); Red Cell Distribution Width 13.2 % (12.1-15.1)
[2021-10-31] MEDS: HYDROcodone-acetaminophen 5-325 mg Tablet PO ×2 (04:13→10:42)
--- NOTE | 2021-10-31 08:32 | PM.PN ---
Subjective Subjective: The patient is doing well this morning. The baby had an apnea episode and will be observed for another day to make sure she is doing ok. Vitals/I&O/Wt Last Vital Signs Temp 97.3 F L 10/31/21 03:35 Pulse 85 10/31/21 06:10 Resp 16 10/31/21 03:37 BP 102/59 10/31/21 06:10 Pulse Ox 99 10/30/21 07:31 O2 Del Method 10/30/21 02:22 10/30/21 10/31/21 10/31/21 22:59 06:59 14:59 Intake Total 934.566 / 2315.000 Balance 934.566 / 1815.000 Weight last 48 hrs Weight 191 lb Weight 191 lb Physical Exam Narrative: No concerns this morning. Const: COMMON NORMALS: no acute distress, patient oriented x3, no limitations, healthy appearing, alert and well nourished GENERAL APPEARANCE: cooperative, comfortable, well kempt and well developed ORIENTATION/CONSCIOUSNESS: Yes awake, Yes oriented to person, Yes oriented to place and Yes oriented to time Resp: COMMON NORMALS: normal respiratory effort EFFORT & INSPECTION: Yes able to speak in complete sentences GI: COMMON NORMALS: Soft to palpation and non-tender PALPATION: Yes Soft to palpation Extremity: COMMON NORMALS: no calf tenderness Neuro: COMMON NORMALS: patient oriented x3 SENSORIUM/ORIENTATION: Yes alert, Yes oriented to person, Yes oriented to place and Yes oriented to time Psych: APPEARANCE: Yes well kempt Urinary Catheter Management: Carter: Cath Placed During This Visit: yes, but has since been removed by the nurse Reason for Continuing Indwelling Catheter: Decision to DC Catheter Urinary Catheter Date of Insertion: 10/30/21 Urinary Catheter Time of Insertion: 07:20 Date Urinary Catheter Removed: 10/30/21 Time Urinary Catheter Discontinued: 11:50 Data : 10/30/21 00:25 Attestations Medical Necessity Statement*: The patient had a vaginal delivery and desires two nights for recovery Coding Level of Care Code Acute Surgical Orderly for Yajaira Stanley
[2021-10-31] MEDS: NIFEdipine ER (24 hr) 30 mg Tablet PO (09:47)
[2021-10-31] MEDS: ibuprofen 800 mg tablet PO ×3 (09:47→20:17)
[2021-10-31] MEDS: docusate sodium 100 mg Capsule PO ×2 (09:48→20:18)
[2021-10-31] MEDS: prenatal vitamin Capsule 1 CAP PO (09:48)
[2021-10-31] MEDS: BuSPIRONE 10 mg Tablet 5 MG PO (20:17)
--- NOTE | 2021-11-01 08:34 | PM.DCS ---
Discharge Providers Date of Admission: 10/30/21 05:27 Date of Discharge: November 01, 2021 Attending Provider at Admission: Sneha Guzman MD Attending Provider at Discharge: Sneha Guzman MD Primary Care Provider: Bing Carnes Diagnoses at Discharge Discharge Diagnosis (1) Short interval between pregnancies affecting , antepartum: Status: Acute (2) Supervision of other high risk , antepartum: Status: Acute (3) Anemia affecting : Status: Acute (4) Gestational hypertension: Status: Acute (5) Obesity affecting : Status: Acute Qualifiers: Trimester: second trimester Qualified Code(s): O99.212 - Obesity complicating , second trimester Reason for Visit Reason for Visit: induction of labor Hospital Course Hospital Course The patient was admitted for induction at term and gestational hypertension. She had spontaneous delivery of a term female . She did well and was ready for discharge on day #2. Physical Exam Narrative: No concerns this morning. Ambulating well. tolerating a regular diet. Breast feeding. normal lochia Const: COMMON NORMALS: no acute distress, patient oriented x3, no limitations, healthy appearing, alert and well nourished GENERAL APPEARANCE: cooperative, comfortable, well kempt and well developed ORIENTATION/CONSCIOUSNESS: Yes awake, Yes oriented to person, Yes oriented to place and Yes oriented to time Resp: COMMON NORMALS: normal respiratory effort EFFORT & INSPECTION: Yes able to speak in complete sentences GI: COMMON NORMALS: Soft to palpation and non-tender PALPATION: Yes Soft to palpation Extremity: COMMON NORMALS: no clubbing, cyanosis or edema and no calf tenderness Neuro: COMMON NORMALS: patient oriented x3 SENSORIUM/ORIENTATION: Yes alert, Yes oriented to person, Yes oriented to place and Yes oriented to time Psych: APPEARANCE: Yes well kempt Urinary Catheter Management: Carter: Cath Placed During This Visit: yes, but has since been removed by the nurse Reason for Continuing Indwelling Catheter: Decision to DC Catheter Urinary Catheter Date of Insertion: 10/30/21 Urinary Catheter Time of Insertion: 07:20 Date Urinary Catheter Removed: 10/30/21 Time Urinary Catheter Discontinued: 11:50 Discharge Data Studies Completed and Pending Laboratory Results WBC 13.0 10^3/uL (4.0-10.0) H 10/30/21 00:25 RBC 3.18 10^6/uL (4.1-5.3) L 10/30/21 00:25 Hgb 10.3 g/dL (11.5-15.3) L 10/30/21 00:25 Hct 30.6 % (37.0-47.0) L 10/30/21 00:25 MCV 96.2 fl (81-99) 10/30/21 00:25 MCH 32.4 pg (28.0-34.0) 10/30/21 00:25 MCHC 33.7 g/dL (30.0-36.0) 10/30/21 00:25 RDW 13.2 % (12.1-15.1) 10/30/21 00:25 Plt Count 160 10^3/cmm (130-400) 10/30/21 00:25 MPV 9.8 fL (7.4-10.4) 10/30/21 00:25 Neut % (Auto) 63.4 % 10/29/21 20:10 Lymph % (Auto) 26.8 % 10/29/21 20:10 Woodruff % (Auto) 7.1 % 10/29/21 20:10 Eos % (Auto) 1.9 % 10/29/21 20:10 Baso % (Auto) 0.2 % 10/29/21 20:10 Neut # (Auto) 6.35 10^3/uL (1.8-7.7) 10/29/21 20:10 Lymph # (Auto) 2.7 10^3/uL (0.8-4.8) 10/29/21 20:10 Woodruff # (Auto) 0.7 10^3/uL (0.2-0.9) 10/29/21 20:10 Eos # (Auto) 0.2 10^3/uL (0.0-0.8) 10/29/21 20:10 Baso # (Auto) 0.0 10^3/uL (0.0-0.1) 10/29/21 20:10 Nucleated RBC % (auto) 0 % 10/29/21 20:10 Nucleated RBCs # 0.0 /100WBC 10/29/21 20:10 Vitals Last Vital Signs Temp 97.3 F L 10/31/21 03:35 Pulse 82 10/31/21 16:40 Resp 16 10/31/21 03:37 BP 114/70 10/31/21 16:40 Pulse Ox 99 10/30/21 07:31 O2 Del Method 10/30/21 02:22 Discharge Plan Discharge Patient Disposition: Home Condition: Stable Prescriptions: New ibuprofen 800 mg Tablet 800 mg PO TID Qty: 30 0RF Continued prenat.vits,tavo,nut-bbpt-gytyt Tablet 1 tab PO DAILY cimetidine 400 mg tablet 400 mg PO BID Qty: 60 3RF Rx Instructions: administer with meals aspirin 81 mg tablet,chewable 81 mg PO DAILY zinc sulfate 50 mg zinc (220 mg) capsule 50 mg PO DAILY nifedipine [Procardia XL] 30 mg tablet extended release 24 hr 30 mg PO DAILY Qty: 30 6RF buspirone 5 mg tablet 5 mg PO BID Qty: 60 6RF Discharge Orders: Discharge Order (Routine); Ordered 11/01/21 Ordered By: Sneha Guzman Referrals: Sneha Guzman MD [Physician] - 11/11/21 1:30 pm Patient Instructions: Depression (DC), Bleeding (DC), Preeclampsia and Eclampsia After Delivery (GEN), Hemorrhage (DC), OB Discharge Report, OB Food/Drug Interaction Guide, OB Care at Home, Opioid Safety, OB Home Care, OB Vaginal Deliveries - [facility] Discharge Attestations Time Spent in Discharge Care*: less than 30 min Quality Metrics Clinical Quality Measures [ No reported AMI, CVA or VTE this stay] Coding Level of Care Code Acute Chg FW DC note Diagnoses Short interval between pregnancies affecting , antepartum O09.899 Supervision of other high risk , antepartum O09.899 Anemia affecting O99.019 Gestational hypertension O13.9 Obesity affecting O99.212 Trimester: second trimester
[2021-11-01] MEDS: prenatal vitamin Capsule 1 CAP PO (09:00)
[2021-11-01] MEDS: docusate sodium 100 mg Capsule PO (09:00)
[2021-11-01] MEDS: ibuprofen 800 mg tablet PO ×2 (09:00→14:31)
[2021-11-01] MEDS: BuSPIRONE 10 mg Tablet 5 MG PO (09:00)
[2021-11-01] MEDS: NIFEdipine ER (24 hr) 30 mg Tablet PO (09:02)
[2021-11-01 10:08] VITALS: BP 115/56; PULSE 85; RESP 15; TEMP 36.3
[2021-11-01 14:33] VITALS: BP 122/75; PULSE 80; RESP 16; TEMP 36.4
[2021-11-01 14:38] VITALS: BP 122/75; PULSE 80; RESP 16; TEMP 36.4; O2SAT 99
== END 2021-11-01 14:39 | disposition home or self-care (01) | DRG 807 ==
LOC: OBGYN 05:30 → OPOB 09:38
PROVIDERS: Admitting Provider Obstetrics & Gynecology; PCP Nurse Practitioner Family; Visit Provider Obstetrics & Gynecology
DX: O13.4 Gestational [pregnancy-induced] hypertension without significant proteinuria, complicating childbirth (principal); Z37.0 Single live birth; O99.214 Obesity complicating childbirth; O99.02 Anemia complicating childbirth; D64.9 Anemia, unspecified; Z3A.37 37 weeks gestation of pregnancy; O69.81X0 Labor and delivery complicated by cord around neck, without compression, not applicable or unspecified; O76 Abnormality in fetal heart rate and rhythm complicating labor and delivery
CPT/HCPCS: 36415; 51702; 59025; 59409; 85025; 85027; J2405; J2795; J3010

== ENCOUNTER → 2021-11-11 15:26 | Outpatient (BNVA) | payer BC, MEDICAID, SELFPAY | PROVIDERS: PCP Nurse Practitioner Family; Visit Provider Obstetrics & Gynecology | DX: Z30.9 Encounter for contraceptive management, unspecified (principal) | CPT/HCPCS: 81025 ==

== ENCOUNTER 2022-09-08 15:41 | Outpatient (CLI) | payer BC, MEDICAID, SELFPAY ==
--- NOTE | 2022-09-08 | US_ITS ---
WS: [id number] EARLY OBSTETRICAL ULTRASOUND (<14 WEEKS). HISTORY: First Trimester COMPARISON: None available. Single intrauterine gestational sac is identified. Cardiac activity at 164 BPM. [place]-rump length tenisha sures 3.3 cm which corresponds to a gestation of 10w1d. Normal-appearing yolk sac and amnion demonstr ated. No subchorionic hemorrhage. No free fluid. Small corpus luteal cyst RIGHT ovary measures 1.2 x 1.1 cm. Negative LEFT ovary. US/US OB <= 14 weeks fetus [id number] IMPRESSION: 1. Single intrauterine gestation of 10 weeks 1 day with an KELVIN of 04/05/2023. 2. Normal cardiac activity.
== END 2022-09-08 15:42 | disposition home or self-care (01) ==
LOC: RAD 15:45
PROVIDERS: PCP Nurse Practitioner Family; Visit Provider Family Medicine
DX: Z34.81 Encounter for supervision of other normal pregnancy, first trimester (principal)
CPT/HCPCS: 76801

== ENCOUNTER 2022-10-22 06:43 | Emergency (ER) | payer BC, MEDICAID, SELFPAY ==
[2022-10-22 06:45] VITALS: BP 141/77; PULSE 93; RESP 17; TEMP 37.1; O2SAT 100
--- NOTE | 2022-10-22 06:45 | US_ITS ---
WS: [id number] ULTRASOUND OB FOCUSED HISTORY: [facility] COMPARISON: 09/08/2022 Single intrauterine gestation is identified. Normal amount of amniotic fluid. The cervix is closed me asuring 3.8 cm. Placenta is anterior and grade 1. No abruption or hemorrhage. heart rate at 150 BPM. Normal movement. IMPRESSION: 1. Normal heart rate. 2. Normal amniotic fluid. 3. Normal anterior placenta. No placental abruption or hemorrhage.
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
[2022-10-22 06:55] VITALS: BP 141/77; PULSE 101; RESP 20; O2SAT 99
[2022-10-22 07:08] LABS: Basophils % 0.2 %; Eosinophils # 0.2 10^3/uL (0.0-0.8); Eosinophils % 1.9 %; Hematocrit 34.5 % (36-47); Lymphocytes # 1.9 10^3/uL (0.8-4.8); Lymphocytes % 20.2 %; Mean Corpuscular HGB Conc 33.9 g/dL (30-55); Mean Corpuscular Hemoglobin 30.9 pg (27-33); Mean Platelet Volume 9.5 fL (7.4-10.4); Monocytes # 0.5 10^3/uL (0.2-0.9); Monocytes % 5.6 %; Neutrophils # 6.56 10^3/uL (1.8-7.7); Neutrophils % 71.4 %; Nucleated Red Blood Cells % 0 %; Platelet Count 184 10^3/cmm (157-399); Red Blood Count 3.79 10^6/uL (3.85-5.65); Red Cell Distribution Width 12.5 % (12.1-15.1); White Blood Count 9.17 10^3/uL (3.29-11.43)
[2022-10-22 07:29] LABS: Alanine Aminotransferase 7 U/L (0-33); Albumin Level 3.7 g/dL (3.5-5.2); Alkaline Phosphatase 51 U/L (35-105); Aspartate Amino Transferase 10 U/L (0-32); Blood Urea Nitrogen 8 mg/dL (6-20); Calcium 8.9 mg/dL (8.5-10.5); Carbon Dioxide 23 mmol/L (22-29); Chloride 105 mmol/L (98-107); Globulin 2.7 g/dL (1.3-4.6); Glomerular Filtration Rate 154.3 mL/min (90-130); Glucose 84 mg/dL (65-115); Osmolality Calculated 280 mOsm/kg (285-295); Sodium 136 mmol/L (136-145); Total Bilirubin 0.4 mg/dL (0.15-1.2); Total Protein 6.4 g/dL (6.6-8.7)
[2022-10-22 08:23] LABS: Add Urine Microscopic? YES; Bacteria Urine 1+ /hpf; Bilirubin Urine Neg (Negative); Blood Urine Neg (Negative); Glucose Urine UA Norm (Normal); Ketones Urine Negative (Negative); Leukocyte Esterase Urine Negative (Negative); Nitrate Urine Negative (Negative); Protein Urine Trace (Negative); RBC Urine 0-4 /hpf (0-2); Specific Gravity, Urine 1.005 (1.005-1.030); Squamous Epithelial Cell Urine 25-40 /hpf (0-5); Urine Appearance Cloudy (CLEAR); Urine Color Straw (Yellow); Urobilinogen Urine Norm (Negative); pH Urine 7 (5-7)
--- NOTE | 2022-10-22 11:08 | PC.NURSE ---
doppler HR 152
== END 2022-10-22 08:18 | disposition home or self-care (01) ==
PROVIDERS: Emergency Provider Family Medicine; PCP Nurse Practitioner Family
DX: Z04.1 Encounter for examination and observation following transport accident (principal); V89.2XXA Person injured in unspecified motor-vehicle accident, traffic, initial encounter; Z87.891 Personal history of nicotine dependence; Z79.82 Long term (current) use of aspirin
CPT/HCPCS: 70450; 72125; 76815; 80053; 81001; 85025; 99285

== ENCOUNTER 2022-11-24 15:35 | Outpatient (CLI) | payer BC, MEDICAID, SELFPAY ==
--- NOTE | 2022-11-24 | US_ITS ---
WS: [id number] OBSTETRICAL ULTRASOUND COMPLETE This examination was completed on 11/24/2022 and 11/25/2022. HISTORY: Anatomy COMPARISON: 09/08/2022 Single intrauterine gestation in Cephalic presentation. Cervix is Closed and normal length. Cervical length is 3.6 cm. Normal amount of amniotic fluid surrounds the fetus. Placenta: Anterior, no previa or abruption. Placenta grade 1 Heart: 147 BPM. Four chambers are identified. RIGHT and LEFT outflow tracts are unremarkable. Anatomy: Intracranial structures and spine are normal. kidneys, stomach and urinary bladd er are unremarkable. Abdominal wall, three-vessel cord and cord insertion site are normal. 4 extremities are present. profile: Unremarkable. Gender: Male. measurements: BPD = 5.2 cm = 21w6d; HC = 19.3 cm = 21w4d; AC = 16.4 cm = 21w3d; FL = 3.6 cm = 21w2d; EFW: 423 g. Biometry is internally concordant. AGA by ultrasound: 21 weeks 4 days KELVIN by ultrasound: 04/03/2023 IMPRESSION: 1. Single intrauterine gestation of 21 weeks 4 days with an KELVIN of 04/03/2023. Appropriate growth sin ce the first trimester ultrasound. 2. Unremarkable screening survey of anatomy.
== END 2022-11-24 15:36 | disposition home or self-care (01) ==
PROVIDERS: PCP Nurse Practitioner Family; Visit Provider Family Medicine
DX: Z34.82 Encounter for supervision of other normal pregnancy, second trimester (principal); Z3A.21 21 weeks gestation of pregnancy
CPT/HCPCS: 76805